=== PATIENT | female | born 1950 | race Caucasian/White ===

== ENCOUNTER 2017-02-27 03:25 | Emergency (ER) | payer MEDICARE ==
[~2017-02-27] VITALS: Ht 152.4 cm; Wt 105.2 kg
[~2017-02-27 03:25] MED LIST: ALBU-136 IH; ALEN70TA PO; CALCIUM PO; FURO20TA8 PO; Gabapentin PO; LACT10SO1 PO; LEVO750T51 PO; MIRT15TA4 PO; SACC250C1 PO; SPIR50TA2 PO; WARF4TAB PO
[2017-02-27 03:29] VITALS: BP 153/93
--- NOTE | 2017-02-27 03:31 | NUR ---
66Y [place] [facility] C/O BILATY LEG PAIN X 2 WEEKS 05/29. PT STATES BILAT LEGS HAS BEEN SWOLLEN FOR YEARS BUT THE PAIN HAS GOTTEN WORSE. PT DENIES ANY N/V/D, SOB,CP AT THE MOMENT. PT AMBULATES WITH CANE AT HOME. PT AAOX4. WITH OPEN SORE RIGHT ADHIKARI Addendum: 02/27/17 at 0421 by CLAIR 66Y F [facility] FAMILY C/O BILATY LEG PAIN X 2 WEEKS 05/29. PT STATES BILAT LEGS HAS BEEN SWOLLEN FOR 5 MONTHS EVER SINCE SHE STARTED SMOKING. PT DENIES ANY CARDIAC OR PULMONARY DX. PT STATES THE PAIN HAS GOTTEN WORSE. PT DENIES ANY N/V/D, SOB,CP AT THE MOMENT. PT AMBULATES WITH CANE AT HOME. PT AAOX4. WITH OPEN SORE RIGHT ADHIKARI
--- NOTE | 2017-02-27 03:31 | NUR ---
PT TAKEN TO BED 3
--- NOTE | 2017-02-27 04:27 | NUR ---
Dr. Brown evaluating patient at bedside.
[2017-02-27] MEDS ORDERED: KETOROLAC 30 MG/ML VIAL IM ONE (04:30)
[2017-02-27] MEDS ORDERED: HYDROcodone/APAP 5/325 MG 1 TAB TAB PO ONE (04:30)
--- NOTE | 2017-02-27 05:00 | NUR ---
Patient discharged with v/s stable. Written and verbal after care instructions given and explained. Patient alert, oriented and verbalized understanding of instructions. Ambulatory with steady gait. All questions addressed prior to discharge. ID band removed. Patient advised to follow up with PMD. Rx of NAPROSYN 500MG, TYLENOL #3 TAB,KEFLEX 500MG given. Patient educated on indication of medication including possible reaction and side effects. Opportunity to ask questions provided and answered.
[2017-02-27 05:01] VITALS: BP 138/87
== END 2017-02-27 05:00 | disposition home or self-care (01) ==
LOC: MED 03:25
DX: L03.115 Cellulitis of right lower limb (principal); I87.2 Venous insufficiency (chronic) (peripheral); L97.819 Non-pressure chronic ulcer of other part of right lower leg with unspecified severity; J45.909 Unspecified asthma, uncomplicated; I50.9 Heart failure, unspecified; E11.9 Type 2 diabetes mellitus without complications; I10 Essential (primary) hypertension; F17.210 Nicotine dependence, cigarettes, uncomplicated
CPT/HCPCS: 96372; 99283; J1885

== ENCOUNTER 2017-10-26 22:31 | Emergency (ER) | payer MEDICARE ==
[~2017-10-26] VITALS: Ht 157.5 cm; Wt 108.9 kg
[~2017-10-26 22:31] MED LIST changes: -ALBU-136 IH; -ALEN70TA PO; +IBUP-2218 PO; -LEVO750T51 PO; +LISI10TA11 PO; +METF500T4 PO; +METH10TA1 PO; +NAPR500E1 PO; +OMEP20TC12 PO
[2017-10-26 22:40] VITALS: BP 151/102
--- NOTE | 2017-10-27 02:20 | NUR ---
PT TAKEN TO BED 10 VIA WHEELCHAIR
--- NOTE | 2017-10-27 02:25 | NUR ---
67/F CAME IN W C/O OPEN WOUND TO RT GROIN, PT REPORTS SHE NOTICED WOUND X 4 DAYS AGO, UNKNOWN CAUSE. YELLOW WOUND BED NOTED WITHOUT ANY DISCHARGE. PMH: DM, HTN
[2017-10-27] MEDS ORDERED: KETOROLAC 60 MG/2 ML VIAL IM ONE (03:45)
[2017-10-27 04:30] VITALS: BP 132/75
--- NOTE | 2017-10-27 04:30 | NUR ---
Patient discharged with v/s stable. Written and verbal after care instructions given and explained. Patient alert, oriented and verbalized understanding of instructions. Ambulatory with steady gait. All questions addressed prior to discharge. ID band removed. Patient advised to follow up with PMD. Rx of BACTRIM DS, KEFLEX AND MOTRIN given. Patient educated on indication of medication including possible reaction and side effects. Opportunity to ask questions provided and answered.
== END 2017-10-27 04:30 | disposition home or self-care (01) ==
LOC: MED 22:31
DX: L03.115 Cellulitis of right lower limb (principal); J45.909 Unspecified asthma, uncomplicated; I11.0 Hypertensive heart disease with heart failure; I50.9 Heart failure, unspecified; E11.9 Type 2 diabetes mellitus without complications; F17.200 Nicotine dependence, unspecified, uncomplicated
CPT/HCPCS: 82948; 96372; 99283; J1885

== ENCOUNTER 2018-02-03 23:53 | Inpatient (IN) | payer MEDICARE, MEDICAID ==
[~2018-02-03] VITALS: Ht 165.1 cm; Wt 102.1 kg
[2018-02-04 00:03] VITALS: BP 157/66
--- NOTE | 2018-02-04 00:06 | NUR ---
TO BED # 10 VIA W/C, REPORT GIVEN TO AMANDA RUELAS.
--- NOTE | 2018-02-04 00:07 | NUR ---
67/F BIB FAMILY, C/O BODY ACHES, FEVER X3 DAYS. PT HAD A FALL 2 DAYS AGO, PT HIT LEFT SIDE OF FOREHEAD AND PERIORBITAL AREA. PT C/O 10/10 PAIN, NONRADIATING. PER FAMILY, HX CIRRHOSIS, DM, HTN, SUBSTANCE ABUSE (HEROIN) THAT PT QUIT. SKIN IS INTACT, PINK/WARM/DRY; AAOX3, PERRL, WITH EVEN AND STEADY GAIT; PT DROWSY BUT AROUSABLE, LUNGS CLEAR BL, BREATHING UNLABORED; HR EVEN AND REGULAR, BL PERIPHERAL PULSES PRESENT; BS ACTIVE X4, NO TENDERNESS TO PALPATION; PATIENT POSITIONED FOR COMFORT; HOB ELEVATED; BEDRAILS UP X2; BED DOWN.
--- NOTE | 2018-02-04 00:29 | NUR ---
Dr. Brown evaluating patient at bedside.
[2018-02-04] MEDS ORDERED: NACL 0.9% 1,000 ML IV ONE ×3 (00:34→02:10)
[2018-02-04 00:57] LABS: BASOPHILS # (AUTO) 0.1 K/uL (0.00-0.22); BASOPHILS % (AUTO) 0.7 % (0.0-2.0); EOSINOPHILS % (AUTO) 0.1 % (0.0-4.0); HEMATOCRIT 40.1 % (36-48); HEMOGLOBIN 13.5 g/dL (12.0-16.0); LYMPHOCYTES % (AUTO) 7.8 % (20.5-51.1); MEAN CORPUSCULAR HEMOGLOBIN 32 pg (27-31); MEAN CORPUSCULAR HGB CONC 34 g/dL (33-37); MONOCYTES # (AUTO) 1.1 K/uL (0.8-1.0); MONOCYTES % (AUTO) 8.7 % (1.7-9.3); NEUTROPHILS # (AUTO) 10.8 K/uL (1.8-7.7); NEUTROPHILS % (AUTO) 82.7 % (42.2-75.2); PLATELET COUNT (AUTO) 108 K/uL (140-450); RED BLOOD CELL COUNT(AUTO) 4.18 MIL/uL (4.20-5.40); RED CELL DISTRIBUTION WIDTH 14.7 % (11.6-13.7); WHITE BLOOD COUNT (AUTO) 13.1 K/uL (4.8-10.8)
[2018-02-04 01:10] LABS: ALBUMIN 2.7 g/dL (3.4-5.0); CARBON DIOXIDE 33.4 mmol/L (21-32)
[2018-02-04 01:13] LABS: APPEARANCE,URINE CLOUDY (CLEAR); BILIRUBIN,URINE NEGATIVE (NEGATIVE); BLOOD, URINE 1+ (NEGATIVE); COLOR,URINE YELLOW (YELLOW); LEUKOCYTE ESTERASE ,URINE TRACE (NEGATIVE); NITRITE, URINE POSITIVE (NEGATIVE); PH,URINE 6.5 (5.0-9.0); UGLUCOSE NEGATIVE (NEGATIVE)
[2018-02-04 01:14] LABS: PROTHROMBIN TIME 13.9 secs (10.8-13.4)
[2018-02-04 01:15] LABS: POTASSIUM 2.4 mmol/L (3.5-5.1)
[2018-02-04] MEDS ORDERED: ACETAMINOPHEN 650 MG SUPP RC ONE (01:15)
[2018-02-04] MEDS ORDERED: PIPERACILLIN/TAZOBACTAM 3.375 GM in DEXTROSE 5% 50 ML IV ONE (01:15)
[2018-02-04] MEDS ORDERED: KCL 20 MEQ/WATER INJ PREMIX 100 ML IV ONE (01:20)
[2018-02-04 01:21] LABS: RBC,URINE 0-5 (RARE) /HPF (0-5)
[2018-02-04] MEDS ORDERED: PIPERACILLIN/TAZOBACTAM 3.375 GM VIAL IV ONE (01:22)
--- NOTE | 2018-02-04 01:33 | NUR ---
Patient taken to CT scan via gurney by teressa, accompanied by RN.
--- NOTE | 2018-02-04 02:31 | NUR ---
PT SLEEPING COMFORTABLY IN BED, RR EVEN AND UNLABORED, SPO2 99% ON O2 2L, RR 12, TEMP 99.1. ALL NEEDS MET AT THIS TIME.
[2018-02-04] MEDS ORDERED: ACETAMINOPHEN 325 MG TAB PO PRN (03:20)
[2018-02-04] MEDS ORDERED: HYDROcodone/APAP 7.5/325 MG 1 TAB PO PRN (03:20)
[2018-02-04] MEDS ORDERED: ONDANSETRON 4 MG/2 ML VIAL IM/IVP PRN (03:20)
[2018-02-04] MEDS ORDERED: DOCUSATE SODIUM 100 MG GELCAP PO PRN (03:20)
[2018-02-04 03:56] LABS: BARBITURATE, URINE NEG. ng/ml (NEG <=200); BENZODIAZEPINE, URINE NEG. ng/mL (NEG <=200); CANNABINOID, URINE NEG. ng/mL (NEG <=50); COCAINE, URINE NEG. ng/mL (NEG <=300); OPIATE, URINE NEG. ng/mL (NEG <=2000); PHENCYCLIDINE SCREEN,URINE NEG. ng/mL (NEG <=25)
[2018-02-04 04:00] VITALS: BP 97/53
--- NOTE | 2018-02-04 04:00 | NUR ---
Patient will be admitted to care of DR LECHUGA. Admited to ICU. Will go to room2. Belongings list completed. Report to SHI RUELAS AT BEDSIDE.
--- NOTE | 2018-02-04 04:10 | NUR ---
RECEIVED PT IN THE UNIT AT 0357. PT TRANSPORTED VIA GURNEY. PT DROWSY. AWAKENS TO VOICE. AFEBRILE AT THIS TIME. ABLE TO MAKE SIMPLE NEEDS KNOWN. PERRL. LUNG SOUNDS CLEAR BILATERALLY. ON OXYGEN AT 2L/MIN VIA NC. NO SIGNS OF RESPIRATORY DISTRESS NOTED. S1+S2 HEARD. PULSES ARE PALPABLE IN ALL EXTREMITIES. SINUS RHYTHM ON MONITOR. BP LOW AT THIS TIME. MD AWARE. ABDOMEN ROUND, SOFT AND NONDISTENDED. BS ACTIVE IN ALL QUADRANTS. PT SKIN IS DRY AND FLAKY ON THE LOWER EXTREMITIES, BUT NO OPEN AREA. PT HAS ABD FOLD EXCORIATION WITH SOME OPEN AREA. EXCORIATION ALSO PRESENT ON BILATERAL GROIN AND FOUL SMELL NOTED. MD MADE AWARE. PT HAS LET FOREARM PERIPHERAL IV SITE 20G THAT IS PATENT, INTACT AND ASYMPTOMATIC. MRSA SWAB OF NARES COLLECTED. BED AT LOW POSSIBLE POSITION. ALL SAFETY PRECAUTIONS ARE IN PLACE. WILL CONTINUE TO MONITOR PT. Addendum: 02/04/18 at 0636 by Drew Pringle RN PT HAS 3 WHITE RINGS ON LEFT HAND AND ONE YELLOW RING WITH MULTIPLE CLEAR WHITE STONES. ON THE RIGHT HAND, THERE IS YELLOW RING WITH WHITE STONE AND YELLOW RING WITH MULTICOLORED STONE
[2018-02-04 04:15] LABS: CHOL/HDL RATIO 6.2 (1-4.5); FREE T4 (FREE THYROXINE) 1.59 ng/dL (0.76-1.46); MAGNESIUM 1.3 mg/dL (1.8-2.4); PHOSPHORUS 3.2 mg/dL (2.5-4.9); THYROID STIMULATING HORMONE 1.45 uIU/mL (0.34-3.74)
--- NOTE | 2018-02-04 04:20 | NUR ---
DR. MIRANDA AT BEDSIDE TO SEE PT. WILL FOLLOW-UP WITH ANY NEW ORDERS.
[2018-02-04] MEDS: NACL 0.9% 1,000 ML IV SCH (04:41)
[2018-02-04] MEDS ORDERED: MECLIZINE 25 MG TAB PO PRN (05:00)
[2018-02-04] MEDS ORDERED: POTASSIUM CHLORIDE 40 MEQ, LIDOCAINE 1% 25 MG in NACL 0.9% 250 ML IV SCH (05:30)
[2018-02-04] MEDS ORDERED: NACL 0.9% 500 ML IV ONE (05:30)
--- NOTE | 2018-02-04 05:42 | NUR ---
INFORMED DR. MIRANDA THAT ORDER OF POTASSIUM WITH LIDOCAINE CANNOT BE ADMINISTERED AT THIS TIME D/T PHARMACY HAS TO MIX THE MEDICATION. PER DR MIRANDA, OKAY TO GIVE THE MEDICATION WHEN IT BECOMES AVAILABLE FROM PHARMACY. WILL ENDORSE TO THE MORNING SHIFT.
[2018-02-04] MEDS ORDERED: MAG SULF 2000 MG/WATER PREMIX 50 ML IV SCH (06:30)
[2018-02-04] MEDS ORDERED: PIPER/TAZO 3.375GM/D5W PREMIX 50 ML IV SCH ×3 (07:00→13:00)
--- NOTE | 2018-02-04 07:11 | NUR ---
REPORT GIVEN TO MORNING RN FOR CONTINUITY OF CARE. ENDORSE THE POTASSIUM WITH LIDOCAINE ORDER. PT IN STABLE CONDITION AT THIS TIME.
--- NOTE | 2018-02-04 07:39 | NUR ---
RECEIVED REPORT FROM PREVIOUS SHIFT. PT RESTING QUIETLY. AFEBRILE. AAO X 3. RESPONDS TO VERBAL AND TACTILE STIMULI. ABLE TO VERBALIZE NEEDS. NO SIGNS OF ACUTE DISTRESS. ON 2LPM O2 VIA NC. S1 + S2 HEART SOUNDS PRESENT. BOWEL SOUNDS HYPOACTIVE X4 QUADRANTS. BUE/BLE PULSES PRESENT +2, SKIN TURGOR ELASTIC. REDNESS NOTED IN ABD. PT CLEAN AND DRY. BED IN LOWEST POSITION. SR UP X4. CALL LIGHT WITHIN REACH.
[2018-02-04 08:00] VITALS: BP 105/49
[2018-02-04] MEDS ORDERED: POTASSIUM CHLORIDE 40 MEQ, LIDOCAINE 2% 25 MG in NACL 0.9% 250 ML IV SCH (09:00)
--- NOTE | 2018-02-04 09:20 | NUR ---
PATIENT ARRIVED FROM ICU VIA BED/GURNEY. ABLE TO AMBULATE WITH ASSIST FROM ICU BED TO [facility] BED. PATIENT IN STABLE CONDITION. NO DISTRESS NOTED. RESPIRATIONS EVEN, UNLABORED, ON O2 3L/MIN VIA NC. AAOX3, CALM, COOPERATIVE, SKIN COLOR APPROPRIATE TO ETHNICITY, WARM TO TOUCH. HAS ABDOMINAL FOLDS AND GROIN FOLDS SKIN REDNESS NOTED. IV SITE INTACT, PATENT, AND INFUSING IVF PER MD ORDERS. ORIENTED PATIENT TO ROOM AND CALL LIGHT. REVIEWED PLAN OF CARE WITH PATIENT. PATIENT VERBALIZED UNDERSTANDING. SAFETY MEASURES IN PLACE, CALL LIGHT WITHIN REACH, FALL PREVENTIONS IN PLACE. WILL CONTINUE TO MONITOR.
[2018-02-04] MEDS: PIPER/TAZO 3.375GM/D5W PREMIX 50 ML IV SCH ×3 (10:01→20:06)
[2018-02-04] MEDS: LACTOBACILLUS RHAMNOSUS GG 1 EACH CAP PO SCH (10:02)
[2018-02-04] MEDS: ASCORBIC ACID 500 MG TAB PO SCH (10:02)
[2018-02-04] MEDS: NYSTATIN CRE 100 MU/GM 15 GM TUBE TP SCH ×2 (10:37→20:12)
[2018-02-04] MEDS: BLOOD GLUCOSE MONITORING 1 DEV DEV FS SCH ×3 (11:30→20:06)
[2018-02-04 12:00] VITALS: BP 115/60
--- NOTE | 2018-02-04 13:15 | NUR ---
WOUND CARE EVALUATION NOTE: REASON FRO EVALUATION: ABDOMINAL FOLDS INTERTRIGO COMPLETE SKIN ASSESSMENT DONE ON THIS 67Y/O FEMALE PATIENT ADMITTED TO [facility], WITH INITIAL DIAGNOSIS OF WORSEN ALOC X 3 DAYS. PAST MEDICAL HISTORY INCLUDE CHF, DM, HTN, AND LIVER CIRRHOSIS. ALL ABOVE INFORMATION WS OBTAINED FROM THE ADMISSION H&P AND PT S DAUGHTER WHO IS AAX4. LABS ARE WBC 13.1, H/H 13.5/40.1, GLUCOSE 117, ALBUMIN 2.7, PATIENT IS ALERT AND ORIENTED. ABLE TO FOLLOW SIMPLE DIRECTIONS. ON O2 WITH NC. URINE AND BOWEL CONTINENT, ABLE TO USE BEDSIDE COMMODE. ABLE TO MAKE NEEDS KNOWN. SKIN WARM TO TOUCH WNL, TOENAILS ARE THICKENED AND MILD FOUL ODER FROM INTERSPACES. POSSIBLE TINEA PEDIS. BILATERAL PEDAL PULSES PRESENT. ABLE TO TURN SELF WITHOUT ASSISTANCE. INITIAL PLAN OF CARE DISCUSSED WITH PRIMARY RN, PTS. DAUGHTER AND DR. THRASHER. ALL QUESTION ANSWERED. INTEGUMENTARY: -BLE XEROSIS WITH DARK PIGMENTATION -BILATERAL FEET / TOES WITH TINEA PEDIS -ABDOMINAL FOLDS INTERTRIGO RECOMMENDATIONS: -CLEANSE ABDOMINAL FOLD WITH MILD SOAP AND WATER, PAT DRY, APPLY NYSTATIN CREAM BIDWC AND LEAVE OPEN TO AIR -APPLY HYDRAGUARD TO BLE XEROSIS BIDWC AND LEAVE IT OPEN TO AIR -APPLY ANTIFUNGAL CREAM TO BILATERAL FEET, TOES BIDWC AND LEAVE IT OPEN TO AIR -TURN AND REPOSITION PATIENT Q2H -ASSESS AND MONITOR SKIN CONDITION DURING POSITION CHANGE -OFFLOAD BILATERAL HEELS BY PLACING PILLOWS UNDER CALVES AT ALL TIMES, UNLESS OTHERWISE CONTRAINDICATED -KEEP SKIN CLEAN AND DRY AT ALL TIMES. -PLEASE FOLLOW UP WITH OUT PATIENT PODIATRY SERVICE RECOMMENDATIONS DISCUSSED WITH PRIMARY RN NO FOLLOW UP NEEDED AT THIS TIME. PLEASE CONTACT WOUND CARE NURSE FOR ANY CONCERNS, QUESTIONS AND CHANGES IN SKIN CONDITION. Addendum: 02/04/18 at 1334 by Jhonatan Ortiz RN (Grace) ADD: R/L GROINS INTERTRIGO, PLEASE CLEANSE R/L GROINS WITH MILD SOAP AND WATER, PAT DRY, APPLY NYSTATIN CREAM BIDWC AND LEAVE OPEN TO AIR
[2018-02-04] MEDS: GABAPENTIN 100 MG CAP PO SCH ×2 (13:56→20:05)
--- NOTE | 2018-02-04 13:59 | NUR ---
PATIENT LYING IN BED SLEEPING, AROUSABLE BY VOICE. NO DISTRESS NOTED. DENIES ANY PAIN. SCHEDULED MEDICATION DUE GIVEN. ZOSYN NOT GIVEN AT THIS TIME DUE TO POTASSIUM VIA IV STILL INFUSING, WILL ADMINISTER ZOSYN WHEN POTASSIUM IS COMPLETED. SAFETY MEASURES IN PLACE, CALL LIGHT WITHIN REACH. WILL CONTINUE TO MONITOR.
--- NOTE | 2018-02-04 14:50 | NUR ---
PATIENT HAS BEEN SCREENED AND CATEGORIZED HIGH NUTRITION RISK. PATIENT WILL BE SEEN WITHIN 1-2 DAYS OF ADMISSION. 02/04/18 02/05/[address]
[2018-02-04 16:00] VITALS: BP 95/67
[2018-02-04 16:02] LABS: CARBON DIOXIDE 29.5 mmol/L (21-32); CREATININE 0.9 mg/dL (0.6-1.3)
[2018-02-04 16:05] LABS: ANION GAP 10.5 (8-16)
[2018-02-04] MEDS ORDERED: metFORMIN 500 MG TAB PO SCH (17:00)
--- NOTE | 2018-02-04 17:35 | NUR ---
PATIENT LYING DOWN IN BED SLEEPING, AROUSABLE BY VOICE. NO DISTRESS NOTED. DENIES ANY PAIN. SCHEDULED MEDICATIONS DUE GIVEN. WILL CONTINUE TO MONITOR.
--- NOTE | 2018-02-04 19:27 | NUR ---
GAVE REPORT TO NETWORK DEVELOPER NURSE FOR CONTINUITY OF CARE. PATIENT IN STABLE CONDITION.
--- NOTE | 2018-02-04 19:30 | NUR ---
RECEIVED REPORT FROM VANESA AT BEDSIDE FOR CONTINUITY OF CARE. PT SLEEPING NO SOB NO S/S OF DISTRESS. O2 2L NC. IV NOTED LFA 20/ML HR NS. NO BLOOD PRESSURE OR BLOOD ON RIGHT PT HAS DVT TO RIGHT HAND. PT BED LOWERED CALL LIGHT WITHIN REACH WILL CONTINUE TO MONITOR.
[2018-02-04 20:00] VITALS: BP 105/57
[2018-02-04] MEDS: MIRTAZAPINE 15 MG TAB PO SCH (20:05)
--- NOTE | 2018-02-04 20:20 | NUR ---
GAVE PT SCHEDULED MEDICATION. PT SWALLOWED FINE. PT DROWSY WILL CONTINUE TO MONITOR.
--- NOTE | 2018-02-04 21:00 | NUR ---
PT DAUGHTER ASKED TO SEE HOW HER MOTHER IS DOING. GAVE HER AN UPDATE AND LET HER KNOW WE WILL CONTINUE TO MONITOR.
[2018-02-05] VITALS: BP 96/51
--- NOTE | 2018-02-05 01:29 | NUR ---
PT SLEEPING. NO SOB. NO S/S OF DISTRESS. WILL CONTINUE TO MONITOR.
[2018-02-05 03:07] VITALS: BP 99/51
[2018-02-05] MEDS: NACL 0.9% 1,000 ML IV SCH (03:20)
[2018-02-05] MEDS: PIPER/TAZO 3.375GM/D5W PREMIX 50 ML IV SCH ×3 (04:03→22:02)
[2018-02-05] MEDS: GABAPENTIN 100 MG CAP PO SCH ×2 (04:04→13:10)
[2018-02-05] MEDS: BLOOD GLUCOSE MONITORING 1 DEV DEV FS SCH ×4 (05:20→20:24)
--- NOTE | 2018-02-05 05:30 | NUR ---
PT BLOOD GLUCOSE 64. GAVE OJ W/ SUGAR. WILL CONTINUE TO MONITOR.
[2018-02-05 06:15] LABS: T4 (THYROXINE) 9.6 ug/dL (4.5-12.0)
--- NOTE | 2018-02-05 07:21 | NUR ---
GAVE REPORT TO DAYSHIFT NURSE AT BEDSIDE FOR CONTINUITY OF CARE.
--- NOTE | 2018-02-05 07:25 | NUR ---
RECEIVED REPORT FROM ASSISTANT TRACK COACH RN. PATIENT IS AAOX3, SLEEPING BUT AROUSABLE BY VOICE. NO DISTRESS NOTED. DENIES PAIN AT THIS TIME. LUNGS CTA IN ALL POLANCO. HEART RHYTHM REGULAR, S1 AND S2 NOTED. ABDOMEN IS SOFT AND ON-DISTENDED. IV SITE ON LEFT FOREARM IS INFILTRATED, WILL REMOVE AND INSERT NEW IV. CLEAN AND DRY LACERATION NOTED ON ABDOMEN, WILL OBTAIN WOUND CULTURE. PATIENT USES A COMMODE AT BEDSIDE WITH ASSISTANCE. DISCUSSED PLAN OF CARE WITH PATIENT, PATIENT VERBALIZED UNDERSTANDING. ALL SAFETY MEASURES ARE IN PLACE, CALL LIGHT WITHIN REACH. WILL CONTINUE TO MONITOR.
[2018-02-05 07:44] LABS: BASOPHILS # (AUTO) 0.1 K/uL (0.00-0.22); EOSINOPHILS # (AUTO) 0.1 K/uL (0-0.4); EOSINOPHILS % (AUTO) 1.4 % (0.0-4.0); HEMATOCRIT 34.8 % (36-48); HEMOGLOBIN 11.7 g/dL (12.0-16.0); LYMPHOCYTES # (AUTO) 1.6 K/uL (2.5-16.5); LYMPHOCYTES % (AUTO) 20.2 % (20.5-51.1); MEAN CORPUSCULAR HEMOGLOBIN 33 pg (27-31); MEAN CORPUSCULAR HGB CONC 34 g/dL (33-37); MEAN CORPUSCULAR VOLUME 97.5 fL (80-94); MONOCYTES # (AUTO) 0.9 K/uL (0.8-1.0); MONOCYTES % (AUTO) 10.7 % (1.7-9.3); NEUTROPHILS # (AUTO) 5.4 K/uL (1.8-7.7); NEUTROPHILS % (AUTO) 66.7 % (42.2-75.2); PLATELET COUNT (AUTO) 104 K/uL (140-450); RED BLOOD CELL COUNT(AUTO) 3.57 MIL/uL (4.20-5.40); RED CELL DISTRIBUTION WIDTH 14.7 % (11.6-13.7)
[2018-02-05] MEDS: ASCORBIC ACID 500 MG TAB PO SCH (08:42)
[2018-02-05] MEDS: LACTOBACILLUS RHAMNOSUS GG 1 EACH CAP PO SCH (08:42)
[2018-02-05] MEDS: NYSTATIN CRE 100 MU/GM 15 GM TUBE TP SCH ×2 (08:58→21:00)
[2018-02-05] MEDS ORDERED: LISINOPRIL 10 MG TAB PO SCH (09:00)
[2018-02-05] MEDS ORDERED: SPIRONOLACTONE 25 MG TAB PO SCH (09:00)
--- NOTE | 2018-02-05 09:15 | NUR ---
PATIENT LYING IN BED, DROWSY, AROUSABLY BY VOICE. NO DISTRESS NOTED. DENIES ANY PAIN. SCHEDULED MEDICATIONS DUE GIVEN. SAFETY MEASURES IN PLACE, CALL LIGHT WITHIN REACH. WILL CONTINUE TO MONITOR.
[2018-02-05 10:19] LABS: ANION GAP 13.1 (8-16); CARBON DIOXIDE 31.5 mmol/L (21-32); CREATININE 0.9 mg/dL (0.6-1.3)
[2018-02-05 10:29] LABS: POTASSIUM 2.6 mmol/L (3.5-5.1)
--- NOTE | 2018-02-05 11:40 | NUR ---
PATIENT SITTING IN BED TALKING WITH SON AT BEDSIDE. BLOOD SUGAR CHECKED AT 62, ORANGE JUICE GIVEN AND WILL RECHECK AGAIN BECAUSE SON REPORTS BLOOD GLUCOSE IS USUALLY HIGH. WILL CONTINUE TO MONITOR.
[2018-02-05 11:52] VITALS: BP 101/59
[2018-02-05] MEDS ORDERED: MAG SULF 2000 MG/WATER PREMIX 50 ML IV SCH (12:30)
--- NOTE | 2018-02-05 12:30 | NUR ---
PATIENT'S BLOOD GLUCOSE RECHECKED AT 92 MG/DL WITH ORANGE JUICE GIVEN EARLIER. PATIENT AWAITING FOR CT ABDOMINAL/PELVIS WITH CONTRAST DONE. RADIOLOGIST SAID THEY WILL COME SOON. SAFETY MEASURES IN PLACE, CALL LIGHT WITHIN REACH. WILL CONTINUE TO MONITOR.
[2018-02-05] MEDS ORDERED: RIFAXIMIN 550 MG TAB PO SCH (13:00)
[2018-02-05] MEDS ORDERED: POTASSIUM CHLORIDE 10 MEQ TABER PO SCH ×2 (13:00→21:00)
[2018-02-05] MEDS ORDERED: METHADONE 10 MG TAB PO SCH ×2 (13:00→21:00)
[2018-02-05] MEDS ORDERED: MUPIROCIN 2% OINT 22 GM TUBE TP SCH (14:20)
--- NOTE | 2018-02-05 14:30 | NUR ---
RADIOLOGIST AT BEDSIDE TO TAKE PATIENT FOR CT SCAN OF ABD/PELVIS WITH CONTRAST. WILL CONTINUE TO MONITOR WHEN PATIENT RETURNS.
--- NOTE | 2018-02-05 14:53 | NUR ---
PATIENT BACK FROM RADIOLOGY. IVF RECONNECTED. LUNCH TRAY GIVEN TO PATIENT. NO DISTRESS NOTED. DENIES ANY PAIN. SAFETY MEASURES IN PLACE, CALL LIGHT WITHIN REACH, WILL CONTINUE TO MONITOR.
--- NOTE | 2018-02-05 14:54 | NUR ---
02/05/18 RD INITIAL ASSESSMENT COMPLETED PLEASE REFER TO NUTRITION ASSESSMENT UNDER CARE ACTIVITY FOR ESTIMATED NUTRITIONAL NEEDS. 1. CONTINUE CCHO 60 DIET TOLERATED 2. RECOMMEND NA 2GM DIET WELL 3. PROVIDE DIABETES AND CHF NUTRITION EDUCATION ON F/U VISIT 4. RD TO FOLLOW-UP 3-5 DAYS, MODERATE RISK CHRISTIAN WEB[address] RD
--- NOTE | 2018-02-05 15:30 | NUR ---
PATIENT LYING DOWN IN BED SLEEPING, AROUSABLE BY VOICE, DROWSY. NO DISTRESS NOTED. DENIES ANY PAIN. SAFETY MEASURES IN PLACE, CALL LIGHT WITHIN REACH. WILL CONTINUE TO MONITOR.
--- NOTE | 2018-02-05 15:47 | NUR ---
Clinical review faxed to [facility] at [phone] and faxed to [facility] at [phone]
[2018-02-05 16:00] VITALS: BP 95/58
[2018-02-05] MEDS ORDERED: KCL 20 MEQ/WATER INJ PREMIX 200 ML IV SCH (16:00)
[2018-02-05] MEDS: ANTIFUNGAL CLEAR OINTMENT TP SCH ×2 (16:26→21:00)
[2018-02-05] MEDS: CHLORHEXADINE GLUC 2% CLOTH TP SCH (16:27)
[2018-02-05] MEDS: HYDRAGUARD CREAM TP SCH ×2 (16:28→21:00)
[2018-02-05] MEDS: MUPIROCIN CA NASAL 2% 1GM TUBE NS SCH (16:29)
[2018-02-05] MEDS ORDERED: POTASSIUM CHLORIDE 40 MEQ, LIDOCAINE 1% 25 MG in NACL 0.9% 250 ML IV SCH (16:45)
[2018-02-05] MEDS: DEXTROSE 50% 50 ML SYR IVP PRN (17:40)
--- NOTE | 2018-02-05 17:43 | NUR ---
PATIENT BLOOD GLUCOSE AT 62, DEXTROSE 50% GIVEN PER MD ORDERS. WILL CHECK BS AGAIN IN 15 MINUTES AFTER ADMINISTRATION. WILL CONTINUE TO MONITOR.
--- NOTE | 2018-02-05 19:09 | NUR ---
ENDORSED PLAN OF CARE TO HOSE OPERATOR RN. PATIENT IS IN STABLE CONDITION. DENIES PAIN. NO DISTRESS NOTED.
[2018-02-05 20:00] VITALS: BP 101/58
--- NOTE | 2018-02-05 20:00 | NUR ---
PATIENT REPORT RECEIVED FROM SURAJ KNAPP AT BEDSIDE. PATIENT IS ASLEEP BUT EASY TO AROUSE. NO SIGNS AND SYMPTOMS OF DISTRESS NOTED. BREATHING EVEN AND UNLABORED. BED IN LOWEST POSITION, SIDE RAILS UP AND CALL LIGHT WITHIN REACH. WILL CONTINUE TO MONITOR
[2018-02-05] MEDS ORDERED: LACTULOSE 20 GM/30 ML UDC PO PRN (20:10)
[2018-02-05] MEDS ORDERED: METHADONE 10 MG TAB PO ONE (20:15)
[2018-02-05] MEDS: MIRTAZAPINE 15 MG TAB PO SCH (20:30)
[2018-02-05] MEDS: RIFAXIMIN 550 MG TAB PO SCH (20:30)
--- NOTE | 2018-02-05 21:00 | NUR ---
MEDICATION EDUCATION GIVEN ORDERED. PATIENT VERBALIZED UNDERSTANDING. MEDICATION ADMINISTERED ORDERED
[2018-02-05] MEDS ORDERED: INSULIN LISPRO SLIDING SCALE 100 UNITS/ML VIAL SUBQ PRN (21:45)
--- NOTE | 2018-02-05 22:08 | NUR ---
METHADONE HELD DUE TO PATIENT'S DECREASED BP AND LETHARGY
--- NOTE | 2018-02-05 22:30 | NUR ---
PATIENT REPORT GIVEN TO SURAJ ACUNA AT BEDSIDE FOR CONTINUITY OF CARE. PATIENT IS IN STABLE CONDITION
--- NOTE | 2018-02-05 22:31 | NUR ---
PATIENT REPORT RECEIVED FROM SURAJ SANON AT BEDSIDE. PATIENT IS ASLEEP BUT EASY TO AROUSE. NO SIGNS AND SYMPTOMS OF DISTRESS NOTED. BREATHING EVEN AND UNLABORED. BED IN LOWEST POSITION, SIDE RAILS UP AND CALL LIGHT WITHIN REACH. WILL CONTINUE TO MONITOR
[2018-02-06] VITALS: BP 103/61
--- NOTE | 2018-02-06 | NUR ---
VITAL SIGNS TAKEN AND TOLERATED WELL. NO S/S OF RESPIRATORY DISTRESS OR DISCOMFORT NOTED AT THIS TIME. WILL CONTINUE TO MONITOR.
--- NOTE | 2018-02-06 02:00 | NUR ---
ASSISTED PT TO USE BED SIDE COMMODE. PT UNSTABLE AND NEEDS HELP GETTING UP OUT OF BED TO USE THE BEDSIDE COMMODE. STRICT I&O. PT VOIDED AND HAD BOWEL MOVEMENT. ASSISTED PT BACK INTO BED. PT REQUESTED WARM BLANKET. PROVIDED FOR PT COMFORT. NO S/S OF RESPIRATORY DISTRESS OR DISCOMFORT. WILL CONTINUE TO MONITOR.
[2018-02-06] MEDS: NACL 0.9% 1,000 ML IV SCH ×2 (03:20→23:20)
[2018-02-06 04:00] VITALS: BP 105/54
[2018-02-06] MEDS: PIPER/TAZO 3.375GM/D5W PREMIX 50 ML IV SCH ×3 (04:40→20:55)
--- NOTE | 2018-02-06 04:40 | NUR ---
SCHEDULED MEDICATION GIVEN. BLOOD GLUCOSE 65. WILL ADMINISTER D50% ABBOJECT 50ML/SYRINGE.
[2018-02-06] MEDS: BLOOD GLUCOSE MONITORING 1 DEV DEV FS SCH ×4 (04:56→20:41)
[2018-02-06] MEDS: DEXTROSE 50% 50 ML SYR IVP PRN (04:58)
--- NOTE | 2018-02-06 05:00 | NUR ---
DEXTROSE 50% ABBOJECT GIVEN. WILL RE-CHECK BLOOD GLUCOSE WITHIN 30 MINUTES. WILL CONTINUE TO MONITOR.
--- NOTE | 2018-02-06 05:35 | NUR ---
BLOOD GLUCOSE 153. PT CONTINUES TO REST IN BED. NO S/S OF RESPIRATORY DISTRESS OR DISCOMFORT. WILL CONTINUE TO MONITOR.
--- NOTE | 2018-02-06 06:00 | NUR ---
PT CONTINUES TO SLEEP. NO S/S OF RESPIRATORY DISTRESS OR DISCOMFORT NOTED. WILL CONTINUE TO MONITOR.
[2018-02-06 06:33] LABS: BASOPHILS % (AUTO) 0.5 % (0.0-2.0); EOSINOPHILS # (AUTO) 0.2 K/uL (0-0.4); EOSINOPHILS % (AUTO) 3.5 % (0.0-4.0); HEMATOCRIT 34.4 % (36-48); HEMOGLOBIN 11.6 g/dL (12.0-16.0); LYMPHOCYTES # (AUTO) 1.4 K/uL (2.5-16.5); LYMPHOCYTES % (AUTO) 28.4 % (20.5-51.1); MEAN CORPUSCULAR HEMOGLOBIN 33 pg (27-31); MEAN CORPUSCULAR HGB CONC 34 g/dL (33-37); MEAN CORPUSCULAR VOLUME 97.5 fL (80-94); MONOCYTES # (AUTO) 0.5 K/uL (0.8-1.0); MONOCYTES % (AUTO) 10.2 % (1.7-9.3); NEUTROPHILS # (AUTO) 2.7 K/uL (1.8-7.7); NEUTROPHILS % (AUTO) 57.4 % (42.2-75.2); PLATELET COUNT (AUTO) 101 K/uL (140-450); RED BLOOD CELL COUNT(AUTO) 3.52 MIL/uL (4.20-5.40); RED CELL DISTRIBUTION WIDTH 14.4 % (11.6-13.7); WHITE BLOOD COUNT (AUTO) 4.8 K/uL (4.8-10.8)
[2018-02-06 06:40] LABS: CARBON DIOXIDE 30.2 mmol/L (21-32); CREATININE 0.8 mg/dL (0.6-1.3); POTASSIUM 3.2 mmol/L (3.5-5.1)
--- NOTE | 2018-02-06 07:19 | NUR ---
ENDORSED PT CARE TO DAY SHIFT NURSE RODRIGUE-SURAJ FOR CONTINUITY OF CARE.
--- NOTE | 2018-02-06 07:20 | NUR ---
RECEIVED REPORT FROM REAL ESTATE TRANSACTION MANAGER RN AT BEDSIDE, PT IS AAOX2, DROWSY NOTED, ABLE TO FOLLOW COMMANDS AND MAKE NEEDS KNOWN, VSS, C/O PAIN TO BLE, 3/10 TOLERABLE, NO S/S OF DISTRESS, CLEAR LUNG SOUNDS LUCIA. DENIES CHEST PAIN, SR ON TELE MONITOR, LARGE SOFT ABDOMEN WITH ACTIVE BOWEL SOUNDS, CONTINENT WITH B&B'S, USING BSC, GENERALIZED WEAKNESS TO ALL EXTREMITIES, REQUIRES ASSIST WITH ADL'S. SKIN IS WARM AND DRY TO TOUCH, OPEN WOUND TO ABDOMEN FOLD AND GROIN AREA, +1 PITTING EDEMA TO BLE NOTED, IV SITE TO LEFT FOREARM 20GA, PATENT AND SL. ON CONTACT ISOLATION, PLACED PT TO COMFORT POSITION, SAFETY MEASURES IN PLACE, HOB ELEVATED, CALL LIGHT WITHIN REACH, WILL CONTINUE TO MONITOR.
[2018-02-06 07:23] LABS: MAGNESIUM 1.7 mg/dL (1.8-2.4); PHOSPHORUS 2.4 mg/dL (2.5-4.9)
[2018-02-06 08:00] VITALS: BP 105/66
[2018-02-06] MEDS ORDERED: MAG SULF 2000 MG/WATER PREMIX 50 ML IV SCH (08:28)
[2018-02-06] MEDS ORDERED: METHADONE 10 MG TAB PO SCH ×3 (09:00→21:00)
--- NOTE | 2018-02-06 09:00 | NUR ---
SCHEDULED MEDICATION GIVEN, PT IS ABLE TO SWALLOW PILLS WHOLE, TOLERATED WELL ALL THE MEDICATIONS.
[2018-02-06] MEDS: HYDRAGUARD CREAM TP SCH ×2 (09:13→21:19)
[2018-02-06] MEDS: LACTULOSE 20 GM/30 ML UDC PO SCH ×2 (09:13→21:03)
[2018-02-06] MEDS: NYSTATIN CRE 100 MU/GM 15 GM TUBE TP SCH ×2 (09:14→21:19)
[2018-02-06] MEDS: RIFAXIMIN 550 MG TAB PO SCH ×2 (09:14→20:56)
[2018-02-06] MEDS: LACTOBACILLUS RHAMNOSUS GG 1 EACH CAP PO SCH (09:15)
[2018-02-06] MEDS: SODIUM PHOS / POTASSIUM PHOS 1 PKT PDR PO SCH ×3 (09:15→21:04)
[2018-02-06] MEDS: ASCORBIC ACID 500 MG TAB PO SCH (09:15)
[2018-02-06] MEDS: SPIRONOLACTONE 25 MG TAB PO SCH (09:15)
[2018-02-06] MEDS: ANTIFUNGAL CLEAR OINTMENT TP SCH ×2 (09:22→21:19)
[2018-02-06] MEDS: KCL 20 MEQ/WATER INJ PREMIX 200 ML IV SCH ×2 (09:31→11:00)
--- NOTE | 2018-02-06 10:48 | NUR ---
Sheriff Note: I called and spoke with patient's son Arnold Zhang regarding MD's recommendation for short term snf placement. Per Arnold, he is in agreement with short term snf placement. I explained to him I was going to contact snfs that are contracted with patient's health insurance and inquire regarding bed availability. I informed him I was going to contact him once I was able to find a snf able to accept patient. He verbalized understanding.
[2018-02-06 12:00] VITALS: BP 105/66
--- NOTE | 2018-02-06 12:00 | NUR ---
NO S/S OF DISTRESS, VSS, DENIES PAIN, ASSISTED PT USING BSC, WILL CONTINUE TO MONITOR.
--- NOTE | 2018-02-06 14:14 | NUR ---
Charge Attendant Note: Snf placement follow up: Per Eladio from [facility] , unable to accept patient due Methadone. Roselia from [facility] left me a message stating they can't accept patient. Per Alfredo from [facility] , they do not have a contract with [facility], despite [facility] being on snf list [facility] faxed us.
--- NOTE | 2018-02-06 14:43 | NUR ---
1034 CALL PLACED TO [facility] [phone] SPOKE WITH TRAY AND INQUIRED CM ASSIGNED TO PT. PER TRAY TRACKING #[id number]*IH AND CM IS [place] AT [phone]. SPOKE WITH DIAZ AND INFORMED HER THAT PT HAS ORDER TO TRANSFER TO SNF FOR CONTINUED IV ABX AND PT. PER DIAZ SHE WILL FAX OVER SNF LIST. CLINICAL REVIEW TO BE FAXED TO [phone] Addendum: 02/06/18 at 1513 by Pam Lucio CM CORRECT PHONE NUMBER FOR [facility] [phone] AND FAX [phone]
--- NOTE | 2018-02-06 15:18 | NUR ---
Hydrological Technical Officer Note: Snf placement follow up: I faxed inquiries to the following snfs and contacted them as well: I left a message for Lissette at [facility] . Per Roxy from [facility] , she will ask her clerical administrator if they can accommodate patient with Methadone. Per Janine from [facility] [phone], she will ask her clerical administrator if they can accommodate patient with Methadone. Addendum: 02/06/18 at 1732 by Lainey GENAO Per Janine from [facility] [phone], they can't accept patient on Methadone. Per Ishaan from [facility] , they can't accept patient on Methadone.
[2018-02-06] MEDS: MUPIROCIN CA NASAL 2% 1GM TUBE NS SCH (15:20)
[2018-02-06] MEDS: CHLORHEXADINE GLUC 2% CLOTH TP SCH (15:20)
[2018-02-06 16:00] VITALS: BP 102/65
--- NOTE | 2018-02-06 16:00 | NUR ---
IV SITE TO LEFT FOREARM ACCIDENTALLY PULLED OUT BY PT, SMALL AMOUNT OF BLEEDING NOTED, REINSERTED IV LINE TO RIGHT FOREARM WITH GOOD BLOOD RETURN.
--- NOTE | 2018-02-06 17:27 | NUR ---
Convention Manager Note: Per Roxy from [facility] , they can accommodate patient with Methadone, however, they need authorization from [facility], I provided her with nurse case management Juan's from [facility] phone number [phone]. Both Roxy and I have left messages for nurse case management Juan from [facility]. I called and spoke with another nurse case management from [facility] [phone], her name is Carmen. Per Carmen, she will try to contact nurse case management Juan and relay information regarding [facility] able to accept patient and need for snf authorization. Addendum: 02/06/18 at 1735 by Lainey GENAO Flako Ramsey from [facility] if they obtain authorization for snf placement from [facility], they will contact nursing staff and provide them with room number and accepting physician.
--- NOTE | 2018-02-06 19:18 | NUR ---
REPORT GIVEN TO GREEN FEED ATTENDANT RN AT BEDSIDE FOR CONTINUE OF CARE, PT IS IN STABLE CONDITION AT THIS TIME.
--- NOTE | 2018-02-06 19:19 | NUR ---
REPORT RECEIVED FROM AM NURSE. PT IN STABLE CONDITION. AAOX2. INTRODUCED SELF AND BOARD UPDATED. HEART SOUNDS NORMAL. LUNG SOUNDS SLIGHTLY DIMINISHED. BOWEL SOUNDS PRESENT X4 QUADRANTS. IV SITE INTACT AND PATENT. SKIN WARM, DRY, AND NOT INTACT. EXCORIATION OF THE ABDOMINAL FOLDS. PT IS A FALL RISK WITH HX OF FALLS. SAFETY MEASURES IN PLACE. BED LOCKED IN LOW POSITION. CALL ROSARIO WITHIN REACH. WILL CONTINUE TO MONITOR.
[2018-02-06 20:00] VITALS: BP 103/65
[2018-02-06] MEDS: MIRTAZAPINE 15 MG TAB PO SCH (20:55)
--- NOTE | 2018-02-06 20:55 | NUR ---
PM MEDS GIVEN. PT TOLERATED WELL.
--- NOTE | 2018-02-06 23:10 | NUR ---
PT ASLEEP IN BED. NOT IN ACUTE DISTRESS. WILL CONTINUE TO MONITOR.
[2018-02-07] VITALS: BP 103/65
--- NOTE | 2018-02-07 01:45 | NUR ---
PT ASLEEP LAYING SUPINE. PT NOT IN ANY ACUTE DISTRESS. WILL CONTINUE TO MONITOR.
[2018-02-07 04:00] VITALS: BP 103/65
--- NOTE | 2018-02-07 04:15 | NUR ---
LEAD OFF FOR PT. PT AWAKENED TO FIND LEAD THAT WAS OFF. PT AROUSABLE BUT DROWSY. PT NOT IN ANY ACUTE DISTRESS.
[2018-02-07] MEDS: PIPER/TAZO 3.375GM/D5W PREMIX 50 ML IV SCH ×2 (04:43→13:32)
[2018-02-07] MEDS: BLOOD GLUCOSE MONITORING 1 DEV DEV FS SCH ×3 (05:13→16:56)
--- NOTE | 2018-02-07 05:15 | NUR ---
PT AWAKENED FOR BLOOD DRAW. AWAKE BUT DROWSY. PT TOLERATED WELL.
[2018-02-07 06:15] LABS: BASOPHILS % (AUTO) 0.2 % (0.0-2.0); EOSINOPHILS # (AUTO) 0.2 K/uL (0-0.4); EOSINOPHILS % (AUTO) 4.4 % (0.0-4.0); HEMATOCRIT 34.9 % (36-48); HEMOGLOBIN 11.9 g/dL (12.0-16.0); LYMPHOCYTES # (AUTO) 1.8 K/uL (2.5-16.5); LYMPHOCYTES % (AUTO) 35.9 % (20.5-51.1); MEAN CORPUSCULAR HEMOGLOBIN 33 pg (27-31); MEAN CORPUSCULAR HGB CONC 34 g/dL (33-37); MEAN CORPUSCULAR VOLUME 97.4 fL (80-94); MONOCYTES # (AUTO) 0.4 K/uL (0.8-1.0); MONOCYTES % (AUTO) 8.4 % (1.7-9.3); NEUTROPHILS # (AUTO) 2.6 K/uL (1.8-7.7); NEUTROPHILS % (AUTO) 51.1 % (42.2-75.2); PLATELET COUNT (AUTO) 111 K/uL (140-450); RED BLOOD CELL COUNT(AUTO) 3.59 MIL/uL (4.20-5.40); RED CELL DISTRIBUTION WIDTH 14.5 % (11.6-13.7); WHITE BLOOD COUNT (AUTO) 5.1 K/uL (4.8-10.8)
[2018-02-07 06:36] LABS: ANION GAP 16.8 (8-16); CARBON DIOXIDE 26.6 mmol/L (21-32); CREATININE 0.7 mg/dL (0.6-1.3); POTASSIUM 3.4 mmol/L (3.5-5.1)
[2018-02-07 06:41] LABS: MAGNESIUM 1.7 mg/dL (1.8-2.4); PHOSPHORUS 3.4 mg/dL (2.5-4.9)
--- NOTE | 2018-02-07 07:08 | NUR ---
REPORT GIVEN TO AM NURSE. PT IN STABLE CONDITION.
--- NOTE | 2018-02-07 07:09 | NUR ---
RECEIVED REPORT FROM FITTING ROOM SUPERVISOR RN. PATIENT IS AAOX2, SLEEPING BUT AROUSABLE TO NAME. HAS NO SIGNS AND SYMPTOMS OF ACUTE DISTRESS NOTED AT THIS TIME. HAS RIGHT FA 20G INFUSING NS AT 50 ML/HR. SITE IS CLEAN, DRY, PATENT AND INTACT. BEDSIDE COMMODE NEXT TO BED DUE TO GENERALIZED WEAKNESS. PATIENTS SKIN IS NOT INTACT, HAS EXCORIATION TO THE ABDOMINAL FOLDS. BED IN LOWEST POSITION, SIDE RIALS UP X2, CALL LIGHT PLACED WITHIN REACH. WILL CONTINUE TO MONITOR.
[2018-02-07] MEDS ORDERED: NACL 0.45% 1,000 ML IV SCH (07:30)
[2018-02-07 08:00] VITALS: BP 93/49
[2018-02-07] MEDS: HYDRAGUARD CREAM TP SCH (09:00)
[2018-02-07] MEDS: SPIRONOLACTONE 25 MG TAB PO SCH (09:00)
[2018-02-07] MEDS: ANTIFUNGAL CLEAR OINTMENT TP SCH (09:00)
[2018-02-07] MEDS: NYSTATIN CRE 100 MU/GM 15 GM TUBE TP SCH (09:00)
--- NOTE | 2018-02-07 10:21 | NUR ---
SPOKE WITH DIAZ FROM [facility] AND INFORMED HER THAT [facility] HAS ACCEPTED THE PATIENT. DIAZ SAID THE AUTH FOR THE SNF IS [id number]. THE AUTH FOR TRANSPORT, [facility] OR [facility] IS [id number]*PTR.
[2018-02-07] MEDS: ASCORBIC ACID 500 MG TAB PO SCH (10:26)
[2018-02-07] MEDS: LACTOBACILLUS RHAMNOSUS GG 1 EACH CAP PO SCH (10:26)
[2018-02-07] MEDS: LACTULOSE 20 GM/30 ML UDC PO SCH (10:27)
[2018-02-07] MEDS: RIFAXIMIN 550 MG TAB PO SCH (10:27)
--- NOTE | 2018-02-07 10:45 | NUR ---
CALLED [facility] AND SPOKE WITH NARENDRA. SET UP [facility] TRANSPORT FOR 5 P.M. JEWEL RUELAS AWARE. MO FROM, [facility] AWARE PATIENT BEING DISCHARGE TODAY. Addendum: 02/07/18 at 1052 by Karen Wilcox JEWEL RUELAS INFORMED THAT PATIENT WILL GO TO ROOM 10B AT [facility], [phone]. AND GEAR TECHNICIAN TIME IS 5P.M.
--- NOTE | 2018-02-07 11:37 | NUR ---
Windlace Machine Operator Note: I spoke with Roxy from [facility] , and provided her [facility] [id number]*[facility]. Roxy stated patient may go to room 10B after 4pm today, accepting physician is . I called and spoke with patient's son Arnold Zhang to inform him [facility] has accepted patient and will be transfer to that facility today. He verbalized understanding and is in agreement with transfer. He stated he was driving and requested I provide his cousin Johnathon with [facility]'s address and phone number, he handed phone to Johnathon. I provided Johnathon with address and phone number for [facility]. Addendum: 02/07/18 at 1200 by Lainey Fontenot SS Roxy from [facility] is aware Methadone is not administered for pain, and is also aware patient is a former heroin user.
[2018-02-07 12:00] VITALS: BP 113/59
[2018-02-07] MEDS ORDERED: VITC500 PO (12:52)
[2018-02-07] MEDS ORDERED: CHLO118S2 TP (12:52)
[2018-02-07] MEDS ORDERED: BACTNA NS (12:52)
[2018-02-07] MEDS ORDERED: MYCC TP (12:52)
[2018-02-07] MEDS ORDERED: Hydraguard TP (12:52)
[2018-02-07] MEDS ORDERED: LACT10SO11 PO (12:52)
[2018-02-07] MEDS ORDERED: DOL10 PO (12:52)
[2018-02-07] MEDS ORDERED: ZOS3.375PM IV (12:52)
[2018-02-07] MEDS ORDERED: DOCU-299 PO (12:52)
[2018-02-07] MEDS ORDERED: [UNRECOGNIZED DRUG - OTHER] TP (12:52)
[2018-02-07] MEDS ORDERED: METHADONE 10 MG TAB PO SCH (13:00)
[2018-02-07] MEDS: CHLORHEXADINE GLUC 2% CLOTH TP SCH (15:00)
[2018-02-07] MEDS: MUPIROCIN CA NASAL 2% 1GM TUBE NS SCH (15:00)
[2018-02-07 16:00] VITALS: BP 115/54
--- NOTE | 2018-02-07 16:05 | NUR ---
CALLED [facility] AND GAVE REPORT TO
--- NOTE | 2018-02-07 17:45 | NUR ---
DISCHARGE ORDER HAS BEEN IN PLACE. PATIENT TO GO TO [facility]. FAMILY IS AWARE. IV SITE LEFT INTACT. PATIENT HAS NO SIGNS AND SYMPTOMS OF ACUTE DISTRESS NOTED AT THIS TIME. GAVE PATIENT EDUCATION ON SIGNS AND SYMPTOMS TO REPORT TO THE NURSES AT THE FACILITY. PATIENT VERBALIZED UNDERSTANDING. DISCHARGE PACKET GIVEN TO [facility]. ALL BELONGINGS ARE WITH PATIENT. ID BANDS REMOVED. GOING BY WHEELCHAIR.
--- NOTE | 2018-02-07 17:49 | NUR ---
PHYSICAL THERAPY CO-SIGN The Physical Therapy Progress Notes documented by Plant Security Guard have been reviewed. Reviewed/Co-Signed by: Francisca Adorno PT Documentation Done by:EDGARD AGUAYO AMERICAN SIGN LANGUAGE TEACHER POC REVIEWED W/ AMERICAN SIGN LANGUAGE TEACHER; WILL BENEFIT W/ P.T. AFTER ACUTE STAY; PROGRESSING W/ FUNC MOB & GAIT ENDURANCE Addendum: 02/07/18 at 1749 by Francisca Adorno PT Amended: Links added.
== END 2018-02-07 17:45 | DRG 871 ==
LOC: MED 23:53 → MTU 02-04 03:20 → MIC 02-04 03:40 → MTU 02-04 09:12
PROVIDERS: ADMIT General Practice; ATTEND General Practice
DX: A41.9 Sepsis, unspecified organism (principal); E43 Unspecified severe protein-calorie malnutrition; I50.43 Acute on chronic combined systolic (congestive) and diastolic (congestive) heart failure; G93.41 Metabolic encephalopathy; I63.9 Cerebral infarction, unspecified; N39.0 Urinary tract infection, site not specified; M80.88XA Other osteoporosis with current pathological fracture, vertebra(e), initial encounter for fracture; C25.9 Malignant neoplasm of pancreas, unspecified; R65.20 Severe sepsis without septic shock; E87.6 Hypokalemia; J45.909 Unspecified asthma, uncomplicated; E11.9 Type 2 diabetes mellitus without complications; K74.60 Unspecified cirrhosis of liver; E83.42 Hypomagnesemia; K72.90 Hepatic failure, unspecified without coma; E78.2 Mixed hyperlipidemia; I11.0 Hypertensive heart disease with heart failure; F11.90 Opioid use, unspecified, uncomplicated; D69.6 Thrombocytopenia, unspecified; L30.4 Erythema intertrigo; B35.3 Tinea pedis; L85.3 Xerosis cutis; K42.9 Umbilical hernia without obstruction or gangrene; Z91.81 History of falling; Z79.899 Other long term (current) drug therapy; Z79.01 Long term (current) use of anticoagulants; Z83.3 Family history of diabetes mellitus; Z82.49 Family history of ischemic heart disease and other diseases of the circulatory system; Z82.5 Family history of asthma and other chronic lower respiratory diseases; Z68.37 Body mass index [BMI] 37.0-37.9, adult; K80.50 Calculus of bile duct without cholangitis or cholecystitis without obstruction
CPT/HCPCS: 36415; 70450; 71045; 80048; 80053; 80305; 81001; 82140; 82150; 82948; 83036; 83605; 83690; 83735; 83880; 84100; 84436; 84439; 84443; 84479; 84484; 85025; 85610; 85730; 87040; 87070; 87075; 87081; 87086; 87186; 87205; 93880; 96365; 96366; 96367; 97110; 97116; 97140; 97530; 99291; C1758; J1815; J2001; J2543; J3475; J3480; J7030; J7060; Q0092; Q9967

== ENCOUNTER 2019-01-28 18:56 | Inpatient (IN) | payer BC, MEDICAID ==
[~2019-01-28] VITALS: Ht 154.9 cm; Wt 95.3 kg
[~2019-01-28 18:56] MED LIST changes: +BACTNA NS; -CALCIUM PO; +CHLO118S2 TP; +DOCU-299 PO; +DOL10 PO; -FURO20TA8 PO; -Gabapentin PO; +Hydraguard TP; +LACT10SO11 PO; -LISI10TA11 PO; -METF500T4 PO; -METH10TA1 PO; +MYCC TP; -NAPR500E1 PO; -SPIR50TA2 PO; +VITC500 PO; +ZOS3.375PM IV; +[UNRECOGNIZED DRUG - OTHER] TP
[2019-01-28 19:07] VITALS: BP 86/31
--- NOTE | 2019-01-28 19:28 | NUR ---
PT BIB FAMILY VIA W/C C/O GENERALIZED WEAKNESS AND LOW BP. PT A&OX4, C/O WEAKNESS, FATIGUE AND GENERAL MALAISE. SPO2 91% ON RA. PLACED ON 2L O2 VIA NC, SPO2 NOW 96%. BREATHING EVEN AND UNLABORED
--- NOTE | 2019-01-28 19:28 | NUR ---
REPORT TO SURAJ WELLS
--- NOTE | 2019-01-28 19:28 | NUR ---
ASSUMED CARE OF PT
--- NOTE | 2019-01-28 19:33 | NUR ---
Dr. Severino examining patient.
[2019-01-28] MEDS ORDERED: NACL 0.9% 1,000 ML IV ONE ×2 (19:35→20:15)
[2019-01-28] MEDS ORDERED: ALBUTEROL SULFATE/IPRATROPIU 3 ML SOL IH ONE (19:35)
[2019-01-28] MEDS ORDERED: methylPREDNISolone SS 125 MG/2 ML VIAL IVP ONE (19:35)
[2019-01-28 20:08] LABS: BASOPHILS % (AUTO) 0.5 % (0.0-2.0); EOSINOPHILS # (AUTO) 0.1 K/uL (0-0.4); EOSINOPHILS % (AUTO) 0.9 % (0.0-4.0); HEMATOCRIT 45.1 % (36-48); HEMOGLOBIN 14.7 g/dL (12.0-16.0); LYMPHOCYTES # (AUTO) 1.6 K/uL (2.5-16.5); LYMPHOCYTES % (AUTO) 23.1 % (20.5-51.1); MEAN CORPUSCULAR HEMOGLOBIN 32 pg (27-31); MEAN CORPUSCULAR HGB CONC 33 g/dL (33-37); MEAN CORPUSCULAR VOLUME 97.8 fL (80-94); MONOCYTES # (AUTO) 0.9 K/uL (0.8-1.0); MONOCYTES % (AUTO) 12.8 % (1.7-9.3); NEUTROPHILS # (AUTO) 4.3 K/uL (1.8-7.7); NEUTROPHILS % (AUTO) 62.7 % (42.2-75.2); PLATELET COUNT (AUTO) 72 K/uL (140-450); RED BLOOD CELL COUNT(AUTO) 4.61 MIL/uL (4.20-5.40); RED CELL DISTRIBUTION WIDTH 14.5 % (11.6-13.7); WHITE BLOOD COUNT (AUTO) 6.9 K/uL (4.8-10.8)
--- NOTE | 2019-01-28 20:12 | NUR ---
# 14 FR Urinary catheter inserted utilizing sterile technique. Immediate return of 200 ml YELLOW/CLEAR urine noted. Urine sample collected and sent to lab. Pt tolerated procedure WELL. CATH REMOVED. PROCEDURE CHAPERONED BY SURAJ JACKSON.
[2019-01-28 20:19] LABS: APPEARANCE,URINE SL CLOUDY (CLEAR); BILIRUBIN,URINE 1+ (NEGATIVE); BLOOD, URINE NEGATIVE (NEGATIVE); COLOR,URINE YELLOW (YELLOW); LEUKOCYTE ESTERASE ,URINE TRACE (NEGATIVE); NITRITE, URINE NEGATIVE (NEGATIVE); UGLUCOSE NEGATIVE (NEGATIVE)
[2019-01-28 20:20] LABS: ANION GAP 15.7 (8-16); CREATININE 3.6 mg/dL (0.6-1.3); POTASSIUM 4.7 mmol/L (3.5-5.1)
[2019-01-28 20:22] LABS: RBC,URINE 0-5 /HPF (0-5); WBC,URINE 16-25 (MOD) /HPF (0-5)
[2019-01-28 20:26] LABS: TOTAL BILIRUBIN 1.7 mg/dL (0.0-1.0)
--- NOTE | 2019-01-28 20:41 | NUR ---
Ultrasound at bedside.
[2019-01-28] MEDS ORDERED: cefTRIAXone 1,000 MG VIAL ONE (20:56)
[2019-01-28] MEDS ORDERED: METF500T PO (21:06)
[2019-01-28] MEDS ORDERED: DOL10 PO (21:06)
--- NOTE | 2019-01-28 22:27 | NUR ---
CURRENT BP: 100/34 POST FLUID ADMINISTRATION.
[2019-01-28] MEDS ORDERED: INSULIN REGULAR, HUMAN 100 UNIT/ML VIAL SUBQ ONE (22:55)
[2019-01-28] MEDS ORDERED: DOCUSATE SODIUM 100 MG GELCAP PO PRN (23:10)
[2019-01-28] MEDS ORDERED: ZOLPIDEM 5 MG TAB PO PRN (23:10)
[2019-01-28] MEDS ORDERED: MORPHINE SULFATE 2 MG/ML SYR IVP PRN (23:10)
[2019-01-28] MEDS ORDERED: HYDROcodone/APAP 5/325 MG 1 TAB TAB PO PRN (23:10)
[2019-01-28] MEDS ORDERED: ONDANSETRON 4 MG/2 ML VIAL IM/IVP PRN (23:10)
[2019-01-28] MEDS ORDERED: ACETAMINOPHEN 325 MG TAB PO PRN (23:10)
[2019-01-28 23:35] VITALS: BP 90/44
--- NOTE | 2019-01-28 23:35 | NUR ---
Admitted from ER TO TELEMETRY UNIT, with chief complaint of SHAKING, UNABLE TO WALK, CANNOT EAT, GEN WEAKNESS, FOR TWO DAYS NOW. 68 y/o ,Female, Cooperative, AWAKE, A/OX4, ADMITTING DATA OBTAINED WITH BIOSOLIDS MANAGEMENT TECHNICIAN [employer] #[id number]. RESPIRATION EVEN AND UNLABORED. IV SALINE LOCK AT THE RIGHT HAND G22, PATENT AND INTACT. APPEARS WEAK AND SEEMS TO BE DROWSY. HEAD TO TOE ASSESSMENT DONE WITH ANNE/SURAJ ROWLAND. NOTED DISCOLORATION ON BILATERAL LOWER EXTREMETIES. SKIN INTACT. DENIES PAIN 0/10. PLAN OF CARE DISCUSSED WITH HELP OF CHASER APPRENTICE. PATIENT VERBALIZED UNDERSTANDING..oriented to call light, bed, phone,television, bathroom, smoking policy, visiting hours, procedures, ID bracelet on. Belongings list checked. DAUGHTER AT THE BEDSIDE.
--- NOTE | 2019-01-28 23:40 | NUR ---
Patient will be admitted to care of DR LECHUGA. Admited to TELE. Will go to room 116. Belongings list completed. Report to DENIS CHAMBERS.
[2019-01-28 23:43] LABS: BARBITURATE, URINE NEG. ng/ml (NEG <=200); BENZODIAZEPINE, URINE NEG. ng/mL (NEG <=200); CANNABINOID, URINE NEG. ng/mL (NEG <=50); COCAINE, URINE NEG. ng/mL (NEG <=300); OPIATE, URINE NEG. ng/mL (NEG <=2000); PHENCYCLIDINE SCREEN,URINE NEG. ng/mL (NEG <=25)
[2019-01-29] MEDS ORDERED: NACL 0.9% 500 ML IV ONE (00:05)
[2019-01-29] MEDS ORDERED: ALBUTEROL SULFATE/IPRATROPIU 3 ML SOL IH PRN (00:10)
[2019-01-29] MEDS ORDERED: LISI30TA6 PO (00:14)
[2019-01-29] MEDS ORDERED: FERR325E14 PO (00:15)
[2019-01-29] MEDS ORDERED: LACT10SO1 PO (00:15)
[2019-01-29] MEDS ORDERED: FURO-572 PO (00:15)
[2019-01-29] MEDS ORDERED: SPIR50TA PO (00:15)
--- NOTE | 2019-01-29 00:30 | NUR ---
Patient's Plan of Care was discussed and reviewed with OUTSIDE SALES ASSOCIATE: TRISH WILDE
--- NOTE | 2019-01-29 00:51 | NUR ---
BP - 90/44, STARTED BOLUS OF NS AT 500 ML/HR.
[2019-01-29 00:55] LABS: FREE T4 (FREE THYROXINE) 1.38 ng/dL (0.76-1.46); MAGNESIUM 2.6 mg/dL (1.8-2.4); THYROID STIMULATING HORMONE 1.87 uIU/mL (0.34-3.74)
--- NOTE | 2019-01-29 01:30 | NUR ---
AMBULATED TO BR WITH ASSISTANCE, BACK TO BED AFTER VOIDING, SAFETY MAINTAINED.
[2019-01-29] MEDS ORDERED: CALCIUM ACETATE 667 MG TAB PO SCH (01:45)
[2019-01-29] MEDS: NACL 0.9% 1,000 ML IV SCH ×3 (02:00→21:19)
--- NOTE | 2019-01-29 02:00 | NUR ---
BOLUS FINISHED, BP - 98/51, HR - 85.
[2019-01-29 03:47] LABS: CARBON DIOXIDE 22.8 mmol/L (21-32); CREATININE 1.9 mg/dL (0.6-1.3); POTASSIUM 3.8 mmol/L (3.5-5.1); PROTHROMBIN TIME 11.2 secs (10.8-13.4)
[2019-01-29 03:52] LABS: CHOL/HDL RATIO 4.7 (1-4.5)
[2019-01-29 04:00] VITALS: BP 93/52
[2019-01-29 04:21] LABS: MAGNESIUM 2.1 mg/dL (1.8-2.4); PHOSPHORUS 4.1 mg/dL (2.5-4.9)
[2019-01-29] MEDS ORDERED: INSULIN REGULAR, HUMAN 100 UNIT/ML VIAL SUBQ SCH (04:30)
--- NOTE | 2019-01-29 04:51 | NUR ---
CAROLYN CHECKED -162. WILL MEDICATE WITH INSULIN ORDERED BY DR. SMITH. Addendum: 01/29/19 at 0631 by Jenny Herrera LVN CORRECTION: BS - NOT 162 BUT 362.
[2019-01-29] MEDS: methylPREDNISolone SS 125 MG/2 ML VIAL IVP SCH ×2 (05:19→13:43)
--- NOTE | 2019-01-29 06:00 | NUR ---
BP CHECKED - 89/51, HR, 65. INFORMED DR. MIRNADA.
--- NOTE | 2019-01-29 06:10 | NUR ---
ORDERED GIVE BOLUS OF NS 500 ML.
--- NOTE | 2019-01-29 06:20 | NUR ---
BOLUS OF NS STARTED.
--- NOTE | 2019-01-29 06:33 | NUR ---
BP CHECKED - 94/56. HR - 72.
--- NOTE | 2019-01-29 06:35 | NUR ---
BS CHECKED - 428, NO COVERAGE PER DR. MIRANDA. PT ASYMPTOMATIC.
--- NOTE | 2019-01-29 06:43 | NUR ---
AMBULATED TO BR TO VOID BY FENCE POST CUTTER AND SON. REMINDED TO VOID IN THE HAT FOR UA TEST.
[2019-01-29] MEDS ORDERED: INSULIN NPH HUM/REG INSULIN HM 100 UNIT/ML 10 ML VIAL SUBQ SCH (07:00)
--- NOTE | 2019-01-29 07:01 | NUR ---
US SPECIMEN FOR URINALYSIS OBTAINED, WILL SEND TO LAB. CONDITION REMAIN STABLE. WILL ENDORSE TO AM NURSE FOR MONITORING OF BP AND BLOOD SUGAR. SON AT THE BEDSIDE.
[2019-01-29] MEDS ORDERED: NACL 0.9% 500 ML IV SCH (07:20)
--- NOTE | 2019-01-29 07:20 | NUR ---
ENDORSED TO AM SHIFT NURSE FOR CONTINUITY OF CARE.
--- NOTE | 2019-01-29 07:21 | NUR ---
RECEIVED REPORT FROM REGISTERED NURSE SURGICAL SERVICES RN TRISH AT BEDSIDE. PT IS AAOX4, SLEEPY DUE TO RESTLESS NIGHT. PT BP AT 94/53 AT THIS TIME. NO SIGNS OF PAIN OR DISTRESS NOTED. PT IV TO THE RIGHT HAND 22G RUNNING NS @ 100ML/HR. NO SOB REPORTED. ORIENTED PT TO ENVIRONMENT AND DISCUSSED POC WITH PT. PT SLEEPY BUT VERBALIZED UNDERSTANDING. BED IN LOW POSITION, CALL LIGHT WITHIN REACH. FALL PRECAUTIONS IN PLACE, SIGNS POSTED, WRIST BANDS APPLIED. FALL GOWN AND SOCKS ON PT. WILL ROUND FREQUENTLY.
[2019-01-29] MEDS ORDERED: BLOOD GLUCOSE MONITORING 1 DEV DEV FS SCH (07:30)
[2019-01-29 08:00] VITALS: BP 93/50
--- NOTE | 2019-01-29 08:46 | NUR ---
PATIENT HAS BEEN SCREENED AND CATEGORIZED HIGH NUTRITION RISK. PATIENT WILL BE SEEN WITHIN 1-2 DAYS OF ADMISSION. 01/29/19-01/30/[address]
[2019-01-29] MEDS ORDERED: LACTULOSE 20 GM/30 ML UDC PO SCH ×2 (09:00)
[2019-01-29] MEDS ORDERED: metFORMIN 500 MG TAB PO SCH ×3 (09:00→17:45)
[2019-01-29] MEDS ORDERED: RIFAXIMIN 550 MG TAB PO SCH (09:00)
[2019-01-29] MEDS: LACTOBACILLUS RHAMNOSUS GG 1 EACH CAP PO SCH (09:05)
[2019-01-29] MEDS: Z-GUARD PASTE TP SCH (09:05)
[2019-01-29] MEDS: RIFAXIMIN 550 MG TAB PO SCH ×2 (09:05→21:26)
[2019-01-29] MEDS: NYSTATIN CRE 100 MU/GM 15 GM TUBE TP SCH ×2 (09:05→21:27)
[2019-01-29] MEDS: INSULIN LISPRO SLIDING SCALE 100 UNITS/ML VIAL SUBQ PRN ×2 (09:13→13:45)
--- NOTE | 2019-01-29 09:23 | NUR ---
ADMINISTERED MORNING SCHEDULED MEDS TO PT. PT TOLERATED THEM WELL. PT STATED THAT SON WILL VISIT TO GIVE INFORMATION ON CLINIC WHERE PT GETS HER METHADONE DISPENSED. PT IS STABLE CONDITION AT THIS TIME. WILL CONTINUE TO ROUND FREQUENTLY. BED IN LOW POSITION, CALL LIGHT WITHIN REACH.
--- NOTE | 2019-01-29 11:23 | NUR ---
PT SLEEPING IN BED. NO SIGNS OF PAIN OR DISTRESS NOTED. WILL CONTINUE TO ROUND FREQUENTLY ON PT.
--- NOTE | 2019-01-29 11:37 | NUR ---
SPOKE WITH PT SON TERESA. ASKED HIM FOR INFORMATION TO PT'S METHADONE CLINIC. PER TERESA, HE WILL GET ME THE INFORMATION AND WILL CALL ME BACK.
[2019-01-29 12:00] VITALS: BP 96/50
--- NOTE | 2019-01-29 12:04 | NUR ---
PT GLUCOSE POC IS 484. NOTIFIED DR. MIRANDA. AWAITING ORDERS FOR INSULIN.
--- NOTE | 2019-01-29 12:32 | NUR ---
PER , PT TO RECEIVE 15 UNITS OF LANTUS INSULIN AND 10 UNITS OF HUMALOG INSULIN. WILL RECHECK BS.
--- NOTE | 2019-01-29 12:37 | NUR ---
SPOKE WITH PHARMACY ABOUT PT METHADONE. ORDER IS VERIFIED BY
[2019-01-29] MEDS: BLOOD GLUCOSE MONITORING 1 DEV DEV FS SCH ×3 (12:44→20:55)
[2019-01-29 13:08] LABS: HEMATOCRIT 44.1 % (36-48); HEMOGLOBIN 14.6 g/dL (12.0-16.0); MEAN CORPUSCULAR HEMOGLOBIN 33 pg (27-31); MEAN CORPUSCULAR HGB CONC 33 g/dL (33-37); MEAN CORPUSCULAR VOLUME 98.3 fL (80-94); PLATELET COUNT (AUTO) 76 K/uL (140-450); RED BLOOD CELL COUNT(AUTO) 4.48 MIL/uL (4.20-5.40); RED CELL DISTRIBUTION WIDTH 14.4 % (11.6-13.7)
[2019-01-29 13:22] LABS: CARBON DIOXIDE 22.4 mmol/L (21-32); CREATININE 1.5 mg/dL (0.6-1.3); POTASSIUM 3.4 mmol/L (3.5-5.1)
[2019-01-29] MEDS ORDERED: INSULIN LANTUS 100 UNITS/ML 10 ML VIAL SUBQ SCH ×2 (14:00→21:00)
--- NOTE | 2019-01-29 14:28 | NUR ---
RECHECKED PT GLUCOSE. GLUCOSE IS 540. NOTIFIED DR. MIRANDA. WILL REASSESS PT.
[2019-01-29 14:31] LABS: LYMPHOCYTES % (MANUAL) 1 % (20-46)
[2019-01-29 16:00] VITALS: BP 95/53
--- NOTE | 2019-01-29 16:04 | NUR ---
01/29/19 RD INITIAL ASSESSMENT COMPLETED PLEASE REFER TO NUTRITION ASSESSMENT UNDER CARE ACTIVITY FOR ESTIMATED NUTRITIONAL NEEDS. 1. CONTINUE RENAL AND CCHO 45 GM DIET TOLERATED 2. RD PROVIDED DIABETES NUTRITION EDUCATION IN [place] 3. RD TO FOLLOW-UP 3-5 DAYS, MODERATE RISK [address]
--- NOTE | 2019-01-29 16:15 | NUR ---
PT GLUCOSE POC IS 478. AWARE. AWAITING NEW ORDERS.
[2019-01-29] MEDS ORDERED: NACL 0.9% 1,000 ML IV ONE (16:35)
[2019-01-29] MEDS ORDERED: POTASSIUM CHLORIDE 10 MEQ TABER PO SCH (17:20)
--- NOTE | 2019-01-29 17:37 | NUR ---
TOLERATED INCENTIVE SPIROMETRY THERAPY WELL WITHOUT INCIDENT ENCOURAGED PATIENT TO USE INCENTIVE SPIROMETRY EVERY 1-2 HOURS WHILE AWAKE
--- NOTE | 2019-01-29 18:05 | NUR ---
PT IN BED WATCHING TV. NO SIGNS OF DISTRESS NOTED. WILL CONTINUE TO ROUND FREQUENTLY ON PT.
--- NOTE | 2019-01-29 18:08 | NUR ---
PER 'S ORDERS, NO INSULIN COVERAGE TO BE GIVEN AT THIS TIME. GIVING METFORMIN. REASSESSMENT OF BS DUE FOR 1999. PT IN STABLE CONDITION, NO SIGNS OF DIAPHORESIS, RAPID BREATHING, DIZZINESS, HEADACHE. WILL CONTINUE TO MONITOR PT CLOSELY.
--- NOTE | 2019-01-29 19:33 | NUR ---
ENDORSED PT TO RAMP FLIGHT ATTENDANT FOR CONTINUITY OF CARE. PT IN STABLE CONDITION AT THIS TIME.
[2019-01-29 20:00] VITALS: BP 103/62
[2019-01-29] MEDS ORDERED: INSULIN NPH HUM/REG INSULIN HM 100 UNIT/ML 10 ML VIAL SUBQ ONE (20:35)
--- NOTE | 2019-01-29 20:55 | NUR ---
BS HIGH AT 525. DR. LUKE INFORMED WILL ORDER. AWAITING FOR ORDERS
[2019-01-29] MEDS ORDERED: METHADONE 10 MG TAB PO SCH (21:00)
--- NOTE | 2019-01-29 21:00 | NUR ---
INFORMED DR. BHATIA THAT PT HAD 9X DIARRHEA. WILL ORDER D/C THE COLACE. NON ADMINISTERED COLACE FOR 2099. AWARE DUE TO DIARRHEA Addendum: 01/30/19 at 0610 by Antonella Billingsley RN PT SAID THAT SHE HAD DIARRHEA 9X SINCE THIS MORNING
[2019-01-29] MEDS: glipiZIDE ER 5 MG TABER PO SCH (21:25)
--- NOTE | 2019-01-29 21:26 | NUR ---
GIVEN METHADONE 20 MG TOTAL ORDERED.
--- NOTE | 2019-01-29 21:30 | NUR ---
PT'S RIGHT HAND IV SITE PAINFUL PER PAT. CHECKED SITE, PT IV CANNULA DISLODGED; INSERTED A NEW IV SITE G 22 AT LEFT FOREARM, PATENT AND INTACT
[2019-01-29] MEDS: INSULIN LANTUS 100 UNITS/ML 10 ML VIAL SUBQ SCH (21:32)
--- NOTE | 2019-01-29 23:30 | NUR ---
DR. CARCAMO SAID TO GIVE THE METFORMIN DOSE, WE VERIFIED W/ PAHARMACY AND PHARMACY LEO THAT IT WAS GIVEN EARLIER AT 1745-FOR NIGHT TIME DOSE. DR. BHATIA INFORMED
--- NOTE | 2019-01-29 23:30 | NUR ---
RETOOK THE BS LEVEL [address] BANDA INFORMED.
[2019-01-30] VITALS: BP 108/68
[2019-01-30] MEDS: BLOOD GLUCOSE MONITORING 1 DEV DEV FS SCH ×6 (00:07→20:25)
--- NOTE | 2019-01-30 02:34 | NUR ---
W/ ORDERS TO TAKE BS AGAIN BY DR. LUKE, BS 424MG/DL. DR. GALLO
[2019-01-30 04:00] VITALS: BP 98/54
[2019-01-30] MEDS: NACL 0.9% 1,000 ML IV SCH ×3 (04:25→20:25)
--- NOTE | 2019-01-30 06:10 | NUR ---
PTOTAL OF 6X BM, DR. LUKE AWARE. NO NEW ORDERS. ALREADY D/C THE COLACE
[2019-01-30 06:28] LABS: HEPATITIS B SURFACE ANTIBODY Non Reactive (.); HEPATITIS B SURFACE ANTIGEN Negative (Negative)
[2019-01-30] MEDS: INSULIN LISPRO SLIDING SCALE 100 UNITS/ML VIAL SUBQ PRN ×3 (06:46→17:37)
--- NOTE | 2019-01-30 06:47 | NUR ---
W/ BS OF 314MG/DL. DR BHATIA INFORMED AND SAID TO GIVE HUMALOG PER SLIDING SCALE
[2019-01-30 07:15] LABS: ANION GAP 12.6 (8-16); BASOPHILS % (AUTO) 0.1 % (0.0-2.0); CARBON DIOXIDE 21.7 mmol/L (21-32); CREATININE 1.1 mg/dL (0.6-1.3); HEMATOCRIT 40.5 % (36-48); HEMOGLOBIN 13.5 g/dL (12.0-16.0); LYMPHOCYTES # (AUTO) 0.4 K/uL (2.5-16.5); LYMPHOCYTES % (AUTO) 4.1 % (20.5-51.1); MEAN CORPUSCULAR HEMOGLOBIN 33 pg (27-31); MEAN CORPUSCULAR HGB CONC 33 g/dL (33-37); MEAN CORPUSCULAR VOLUME 97.9 fL (80-94); MONOCYTES # (AUTO) 0.6 K/uL (0.8-1.0); MONOCYTES % (AUTO) 5.5 % (1.7-9.3); NEUTROPHILS # (AUTO) 9.3 K/uL (1.8-7.7); NEUTROPHILS % (AUTO) 90.3 % (42.2-75.2); PLATELET COUNT (AUTO) 78 K/uL (140-450); POTASSIUM 4.3 mmol/L (3.5-5.1); RED BLOOD CELL COUNT(AUTO) 4.14 MIL/uL (4.20-5.40); RED CELL DISTRIBUTION WIDTH 14.5 % (11.6-13.7); WHITE BLOOD COUNT (AUTO) 10.3 K/uL (4.8-10.8)
--- NOTE | 2019-01-30 07:25 | NUR ---
ENDORSED TO AM SHIFT NURSE. PT IN STABLE CONDITION AT THIS TIME
--- NOTE | 2019-01-30 07:26 | NUR ---
REPORT RECEIVED FROM TEXTILE MACHINE MAINTENANCE MECHANIC NURSE, PT AWAKE ALERT, RESP EVEN UNLABORED, SKIN WARM DRY COLOR WNL, PT DENIES ANY PAIN OR DISCOMFORT, POC REVIEWED, ALL SAFETY MEASURES IN PLACE, WILL CONTINUE TO MONITOR.
[2019-01-30 07:27] LABS: PHOSPHORUS 3.4 mg/dL (2.5-4.9)
[2019-01-30 08:00] VITALS: BP 98/48
--- NOTE | 2019-01-30 08:45 | NUR ---
FINGER STICK GLUCOSE 330, WILL MEDICATE PER ORDER.
[2019-01-30] MEDS: glipiZIDE ER 5 MG TABER PO SCH (08:51)
[2019-01-30] MEDS: metFORMIN 500 MG TAB PO SCH ×2 (08:51→17:47)
[2019-01-30] MEDS: LACTOBACILLUS RHAMNOSUS GG 1 EACH CAP PO SCH (08:52)
[2019-01-30] MEDS: NYSTATIN CRE 100 MU/GM 15 GM TUBE TP SCH ×2 (08:52→20:38)
[2019-01-30] MEDS: RIFAXIMIN 550 MG TAB PO SCH ×2 (08:52→20:38)
[2019-01-30] MEDS: Z-GUARD PASTE TP SCH (08:56)
--- NOTE | 2019-01-30 10:21 | NUR ---
PT UP AMBULATING WITH PHYSICAL THERAPY.
[2019-01-30] MEDS: INSULIN NPH HUM/REG INSULIN HM 100 UNIT/ML 10 ML VIAL SUBQ SCH ×2 (10:28→16:30)
[2019-01-30 12:00] VITALS: BP 98/60
[2019-01-30] MEDS ORDERED: METHADONE 10 MG TAB PO SCH (12:00)
--- NOTE | 2019-01-30 12:24 | NUR ---
10U INSULIN GIVEN PER SLIDING SCALE FOR 256, PT NOW SITTING UP EATING LUNCH.
--- NOTE | 2019-01-30 12:52 | NUR ---
PT REQUESTS TO INCREASE THE DOSE OF METHADONE TO 60MG, CURRENTLY ON 20MG. DR MIRANDA NOTIFIED.
--- NOTE | 2019-01-30 13:40 | NUR ---
[facility] CALLED AT [phone] TO FAX CURRENT DOSING, OFFICE CLOSED AT 1330, AFTER HOURS NUMBER [phone] CALLED AND LEFT MESSAGE WITH GALINDO TO CALL US WITH FAX NUMBER, SO REQUEST FOR INFORMATION CAN BE SENT. AWAITING CALL BACK.
--- NOTE | 2019-01-30 14:40 | NUR ---
PT UP TO BATHROOM WITH MINIMAL ASSIST.
[2019-01-30 16:00] VITALS: BP 101/68
--- NOTE | 2019-01-30 16:30 | NUR ---
BLOOD SUGAR 177, WILL MEDICATE PER SLIDING SCALE.
--- NOTE | 2019-01-30 18:00 | NUR ---
PT SITTING UP EATING DINNER, APPEARS IN NO ACUTE DISTRESS.
--- NOTE | 2019-01-30 19:20 | NUR ---
REPORT GIVEN TO BALLROOM DANCE INSTRUCTOR NURSE, PT IN STABLE CONDITION.
--- NOTE | 2019-01-30 19:21 | NUR ---
REPORT RECEIVED FROM AM SHIFT NURSE, PT AWAKE ALERT, SPANSIH SPEAKING BUT CAN UNDERSTAND LIBYAN. RESP EVEN UNLABORED, SKIN WARM DRY COLOR WNL, PT DENIES ANY PAIN OR DISCOMFORT, W/ IV IN THE LEFT FA G 22, INTACT.POC REVIEWED, ALL SAFETY MEASURES IN PLACE, WILL CONTINUE TO MONITOR.
[2019-01-30 20:00] VITALS: BP 120/50
[2019-01-30] MEDS: INSULIN LANTUS 100 UNITS/ML 10 ML VIAL SUBQ SCH (20:39)
--- NOTE | 2019-01-30 20:39 | NUR ---
LANTUS INSULIN NOT ADMINISTERED. DR. LUKE ORDERED TO HOLD IT
[2019-01-30] MEDS: DEXTROSE 50% 50 ML SYR IVP PRN ×5 (22:00→23:38)
--- NOTE | 2019-01-30 22:30 | NUR ---
PHARMACY :PLEASE CHANGE THE TIME ADMINISTERED FOR D50 IV TO 2330. I INADVERTENTLY PUT THE TIME AT 2200. CANCEL 0 AND CHANGED IT TO 2230. I TOOK THE D50 IV AT XIS 2220. Addendum: 01/31/19 at 0301 by Antonella Billingsley RN PHARMACY :PLEASE CHANGE THE TIME ADMINISTERED FOR D50 IV TO 2230. I INADVERTENTLY PUT THE TIME AT 2338. CANCEL 2338 AND CHANGED IT TO 2230. I TOOK THE D50 IV AT XIS 2220
--- NOTE | 2019-01-30 22:40 | NUR ---
IVF SITE ON LEFT FA G 22,INFILTRATED.D/C SITE AND NEW SITE STARTED ON RIGHT FOREARM G 20
--- NOTE | 2019-01-30 23:00 | NUR ---
RECHECKED BS RESULT NOW IS 136MG/DL. PT COMMFORTABLE, AROUSABLE, DRANK JUICE, TRYING TO GET SOME SLEEP.
[2019-01-31] VITALS: BP 121/50
--- NOTE | 2019-01-31 | NUR ---
BS STILL 136 MG/DL
[2019-01-31] MEDS: BLOOD GLUCOSE MONITORING 1 DEV DEV FS SCH ×4 (00:46→11:42)
[2019-01-31] MEDS: NACL 0.9% 1,000 ML IV SCH ×2 (00:48→12:24)
[2019-01-31 04:00] VITALS: BP 90/50
[2019-01-31 06:47] LABS: BASOPHILS % (AUTO) 0.1 % (0.0-2.0); EOSINOPHILS % (AUTO) 0.7 % (0.0-4.0); HEMATOCRIT 38.5 % (36-48); HEMOGLOBIN 12.7 g/dL (12.0-16.0); LYMPHOCYTES # (AUTO) 1.7 K/uL (2.5-16.5); LYMPHOCYTES % (AUTO) 23.7 % (20.5-51.1); MEAN CORPUSCULAR HEMOGLOBIN 33 pg (27-31); MEAN CORPUSCULAR HGB CONC 33 g/dL (33-37); MEAN CORPUSCULAR VOLUME 98.6 fL (80-94); MONOCYTES # (AUTO) 0.5 K/uL (0.8-1.0); MONOCYTES % (AUTO) 7.7 % (1.7-9.3); NEUTROPHILS # (AUTO) 4.7 K/uL (1.8-7.7); NEUTROPHILS % (AUTO) 67.8 % (42.2-75.2); PLATELET COUNT (AUTO) 72 K/uL (140-450); RED CELL DISTRIBUTION WIDTH 14.6 % (11.6-13.7)
--- NOTE | 2019-01-31 06:55 | NUR ---
PT ASLEEP AT THIS TIME, BUT CAN BE AROUSED EASILY. PT'S BS FOR MONITORING, ENDORSED TO NEXT SHIFT
[2019-01-31 07:03] LABS: ANION GAP 11.9 (8-16); CARBON DIOXIDE 21.2 mmol/L (21-32); CREATININE 0.9 mg/dL (0.6-1.3); POTASSIUM 4.1 mmol/L (3.5-5.1)
--- NOTE | 2019-01-31 07:20 | NUR ---
RECEIVED BEDSIDE REPORT FROM NIGHT NURSE. PT IS BREATHING UNLABORED AND SYMMETRICAL. ALL SAFETY MEASURES IN CHECK AND CALL LIGHT WITHIN REACH. PT IS AOX4 WITH A RIGHT WRIST IV THAT IS RUNNING NORMAL SALINE AT 125ML/HR PATENT AND ASYMPOMATIC. PT HAS DISCOLORING TO BLE.
[2019-01-31 08:00] VITALS: BP 106/62
[2019-01-31] MEDS: metFORMIN 500 MG TAB PO SCH (08:00)
[2019-01-31] MEDS ORDERED: glipiZIDE ER 5 MG TABER PO SCH (09:00)
[2019-01-31] MEDS: LACTOBACILLUS RHAMNOSUS GG 1 EACH CAP PO SCH (09:17)
[2019-01-31] MEDS: RIFAXIMIN 550 MG TAB PO SCH (09:18)
[2019-01-31] MEDS: Z-GUARD PASTE TP SCH (09:19)
--- NOTE | 2019-01-31 09:21 | NUR ---
PT BLOOD GLUCOSE 60 ON FIRST READING 92 ON RETEST AFTER PATIENT ATE SOME BREAKFAST. SPOKE WITH DR BABCOCK WHO STATED TO GIVE GLIPIZIDE HOLD METFORMIN.
[2019-01-31] MEDS: NYSTATIN CRE 100 MU/GM 15 GM TUBE TP SCH (09:39)
--- NOTE | 2019-01-31 10:05 | NUR ---
SPOKE WITH [facility] CLINIC AT [phone] AND ASKED THEM TO FAX [facility] THE DOSAGE FOR HER METHADONE. THEY STATED THEY WOULD.
--- NOTE | 2019-01-31 10:52 | NUR ---
PT SLEEPING IN BED BREATHING UNLABORED NO OBVIOUS SIGNS OF DISTRESS.
--- NOTE | 2019-01-31 11:33 | NUR ---
PT SLEEPING IN BED NO SIGNS OBVIOUS DISTRESS BREATHING UNLABORED.
[2019-01-31] MEDS ORDERED: INSU100S22 SUBQ (11:59)
[2019-01-31 12:00] VITALS: BP 107/63
[2019-01-31] MEDS ORDERED: METHADONE 10 MG TAB PO SCH (12:00)
[2019-01-31] MEDS ORDERED: METF1000 PO (12:02)
[2019-01-31] MEDS ORDERED: LISI10TA11 PO (12:03)
[2019-01-31] MEDS ORDERED: CIPR500T4 PO (12:32)
--- NOTE | 2019-01-31 13:45 | NUR ---
PT SLEEPING IN BED BREATHING UNLABORED.
--- NOTE | 2019-01-31 13:50 | NUR ---
NOTIFIED DR MIRANDA THAT FAX FOR METHADONE ORDER WAS SENT ALONGSIDE MEDICAL RECORD OF PT. HE DENIES WANTING THE PAPERWORK AT THIS TIME, INFORMED HIM I WILL PUT IT IN HER CHART.
[2019-01-31] MEDS ORDERED: HYDR-5123 PO (15:11)
[2019-01-31 15:16] LABS: ANION GAP 12.8 (8-16); CARBON DIOXIDE 21.1 mmol/L (21-32); CREATININE 0.9 mg/dL (0.6-1.3); POTASSIUM 3.9 mmol/L (3.5-5.1)
--- NOTE | 2019-01-31 15:40 | NUR ---
DISCHARGED PATIENT. PATIENT WITH [facility] WHO TRANSPORTED PT HOME. PT HAS ALL BELONGINGS WITH HER AND REVIEWED AND SIGNED ALL DISCHARGE PAPERWORK. PROVIDED PT WITH SUPPLIES FOR INSULIN ADMINISTRATION, PT REFUSES INSULIN INJECTION EDUCATION STATING SHE KNOWS WHAT TO DO. IV REMOVED WITH CATHETER INTACT AND ALL ID BANDS REMOVED AND DISPOSED OF. ADMINISTERED NORCO PAIN MEDICATION FOR BACK PAIN FOLLOWING DR MIRANDA RECOMMENDATION. INFORMED SIGN MAKER OF 1540 DISCHARGE DEPARTURE TIME.
== END 2019-01-31 15:40 | disposition home or self-care (01) | DRG 682 ==
LOC: MED 18:56 → MTU 23:10
PROVIDERS: ADMIT General Practice; ATTEND General Practice
DX: N17.0 Acute kidney failure with tubular necrosis (principal); R57.1 Hypovolemic shock; N39.0 Urinary tract infection, site not specified; E44.0 Moderate protein-calorie malnutrition; D68.59 Other primary thrombophilia; E87.1 Hypo-osmolality and hyponatremia; J44.1 Chronic obstructive pulmonary disease with (acute) exacerbation; I95.9 Hypotension, unspecified; E11.21 Type 2 diabetes mellitus with diabetic nephropathy; E11.65 Type 2 diabetes mellitus with hyperglycemia; J45.909 Unspecified asthma, uncomplicated; I11.0 Hypertensive heart disease with heart failure; I50.9 Heart failure, unspecified; K70.30 Alcoholic cirrhosis of liver without ascites; K80.20 Calculus of gallbladder without cholecystitis without obstruction; F11.10 Opioid abuse, uncomplicated; F17.210 Nicotine dependence, cigarettes, uncomplicated; K72.90 Hepatic failure, unspecified without coma; E80.6 Other disorders of bilirubin metabolism; G89.29 Other chronic pain; E87.8 Other disorders of electrolyte and fluid balance, not elsewhere classified; E83.39 Other disorders of phosphorus metabolism; E83.41 Hypermagnesemia; D69.6 Thrombocytopenia, unspecified; Z91.19 Patient's noncompliance with other medical treatment and regimen; Z86.718 Personal history of other venous thrombosis and embolism; Z82.5 Family history of asthma and other chronic lower respiratory diseases; Z83.3 Family history of diabetes mellitus; Z68.39 Body mass index [BMI] 39.0-39.9, adult; Z82.49 Family history of ischemic heart disease and other diseases of the circulatory system
CPT/HCPCS: 36415; 71045; 76700; 80048; 80053; 80305; 81001; 82140; 82150; 82948; 83036; 83605; 83690; 83735; 83880; 84100; 84134; 84439; 84443; 84484; 85025; 85610; 85730; 86706; 86803; 87040; 87081; 87086; 87340; 93005; 93925; 93970; 94640; 96361; 96365; 96372; 96375; 97110; 97112; 97116; 97530; 99285; J0696; J1815; J2930; J7030; J7060; J7620; Q0092

== ENCOUNTER 2019-05-28 19:35 | Inpatient (IN) | payer BC ==
[~2019-05-28] VITALS: Ht 144.8 cm; Wt 85.7 kg
[~2019-05-28 19:35] MED LIST changes: -BACTNA NS; -CHLO118S2 TP; +CIPR500T4 PO; -DOCU-299 PO; +HYDR-5123 PO; -Hydraguard TP; -IBUP-2218 PO; +INSU100S22 SUBQ; -LACT10SO11 PO; +LISI10TA11 PO; +METF1000 PO; -MIRT15TA4 PO; -MYCC TP; -OMEP20TC12 PO; -SACC250C1 PO; +SPIR50TA PO; -VITC500 PO; -WARF4TAB PO; -ZOS3.375PM IV; -[UNRECOGNIZED DRUG - OTHER] TP
[2019-05-28 20:25] VITALS: BP 89/41
[2019-05-28] MEDS ORDERED: NACL 0.9% 1,000 ML IV SCH (21:21)
[2019-05-28 22:24] LABS: BASOPHILS % (AUTO) 0.3 % (0.0-2.0); EOSINOPHILS # (AUTO) 0.1 K/uL (0-0.4); EOSINOPHILS % (AUTO) 1.6 % (0.0-4.0); HEMATOCRIT 38.8 % (36-48); LYMPHOCYTES # (AUTO) 1.5 K/uL (2.5-16.5); LYMPHOCYTES % (AUTO) 27.8 % (20.5-51.1); MEAN CORPUSCULAR HEMOGLOBIN 34 pg (27-31); MEAN CORPUSCULAR HGB CONC 33 g/dL (33-37); MEAN CORPUSCULAR VOLUME 102.6 fL (80-94); MONOCYTES # (AUTO) 0.6 K/uL (0.8-1.0); MONOCYTES % (AUTO) 10.1 % (1.7-9.3); NEUTROPHILS # (AUTO) 3.3 K/uL (1.8-7.7); NEUTROPHILS % (AUTO) 60.2 % (42.2-75.2); PLATELET COUNT (AUTO) 96 K/uL (140-450); RED BLOOD CELL COUNT(AUTO) 3.78 MIL/uL (4.20-5.40); RED CELL DISTRIBUTION WIDTH 13.5 % (11.6-13.7); WHITE BLOOD COUNT (AUTO) 5.5 K/uL (4.8-10.8)
[2019-05-28 22:42] LABS: PROTHROMBIN TIME 9.9 secs (10.8-13.4)
[2019-05-28 22:52] LABS: CARBON DIOXIDE 24.9 mmol/L (21-32); POTASSIUM 4.9 mmol/L (3.5-5.1)
[2019-05-28 22:53] LABS: CREATININE 2.8 mg/dL (0.6-1.3)
[2019-05-28 22:54] LABS: ALBUMIN 3.4 g/dL (3.4-5.0)
[2019-05-28] MEDS ORDERED: NACL 0.9% 1,000 ML IV ONE (23:25)
[2019-05-28 23:55] LABS: APPEARANCE,URINE CLEAR (CLEAR); BILIRUBIN,URINE NEGATIVE (NEGATIVE); BLOOD, URINE NEGATIVE (NEGATIVE); COLOR,URINE YELLOW (YELLOW); LEUKOCYTE ESTERASE ,URINE 1+ (NEGATIVE); NITRITE, URINE NEGATIVE (NEGATIVE); UGLUCOSE NEGATIVE (NEGATIVE)
[2019-05-29] MEDS ORDERED: DOCUSATE SODIUM 100 MG GELCAP PO PRN (00:25)
[2019-05-29] MEDS ORDERED: ONDANSETRON 4 MG/2 ML VIAL IM/IVP PRN (00:25)
[2019-05-29] MEDS ORDERED: ACETAMINOPHEN 325 MG TAB PO PRN (00:25)
[2019-05-29 00:31] LABS: RBC,URINE 0-5 /HPF (0-5)
[2019-05-29] MEDS ORDERED: LISI10TA11 PO (01:28)
[2019-05-29] MEDS ORDERED: GABA400C PO (01:28)
[2019-05-29] MEDS ORDERED: FURO-572 PO (01:28)
[2019-05-29 01:55] LABS: BARBITURATE, URINE NEGATIVE ng/ml (NEG <=200); BENZODIAZEPINE, URINE NEGATIVE ng/mL (NEG <=200); CANNABINOID, URINE NEGATIVE ng/mL (NEG <=50); COCAINE, URINE NEGATIVE ng/mL (NEG <=300); OPIATE, URINE NEGATIVE ng/mL (NEG <=2000); PHENCYCLIDINE SCREEN,URINE NEGATIVE ng/mL (NEG <=25)
[2019-05-29 02:15] VITALS: BP 108/52
[2019-05-29] MEDS ORDERED: POTA10TE30 PO (02:15)
[2019-05-29] MEDS ORDERED: METF500T2 PO (02:15)
[2019-05-29] MEDS: HYDROcodone/APAP 7.5/325 MG 1 TAB PO PRN ×2 (02:29→11:40)
[2019-05-29] MEDS: NACL 0.9% 1,000 ML IV SCH ×2 (02:48→07:31)
[2019-05-29] MEDS ORDERED: cefTRIAXone 1,000 MG VIAL ONE (03:06)
[2019-05-29 04:00] VITALS: BP 110/53
[2019-05-29 04:25] LABS: MAGNESIUM 3.8 mg/dL (1.8-2.4)
[2019-05-29 04:26] LABS: CHOL/HDL RATIO 6.7 (1-4.5); FREE T4 (FREE THYROXINE) 1.09 ng/dL (0.76-1.46); PHOSPHORUS 5.7 mg/dL (2.5-4.9); THYROID STIMULATING HORMONE 1.02 uIU/mL (0.34-3.74)
[2019-05-29] MEDS: BLOOD GLUCOSE MONITORING 1 DEV DEV FS SCH ×4 (05:35→21:19)
[2019-05-29] MEDS: INSULIN LISPRO SLIDING SCALE 100 UNITS/ML VIAL SUBQ PRN ×3 (05:37→21:21)
[2019-05-29 06:51] LABS: BASOPHILS % (AUTO) 0.5 % (0.0-2.0); EOSINOPHILS # (AUTO) 0.1 K/uL (0-0.4); EOSINOPHILS % (AUTO) 1.5 % (0.0-4.0); HEMATOCRIT 36.2 % (36-48); HEMOGLOBIN 11.9 g/dL (12.0-16.0); LYMPHOCYTES # (AUTO) 1.4 K/uL (2.5-16.5); LYMPHOCYTES % (AUTO) 27.4 % (20.5-51.1); MEAN CORPUSCULAR HEMOGLOBIN 34 pg (27-31); MEAN CORPUSCULAR HGB CONC 33 g/dL (33-37); MEAN CORPUSCULAR VOLUME 102.5 fL (80-94); MONOCYTES # (AUTO) 0.7 K/uL (0.8-1.0); MONOCYTES % (AUTO) 12.7 % (1.7-9.3); NEUTROPHILS # (AUTO) 3.1 K/uL (1.8-7.7); NEUTROPHILS % (AUTO) 57.9 % (42.2-75.2); PLATELET COUNT (AUTO) 89 K/uL (140-450); RED BLOOD CELL COUNT(AUTO) 3.53 MIL/uL (4.20-5.40); RED CELL DISTRIBUTION WIDTH 13.5 % (11.6-13.7); WHITE BLOOD COUNT (AUTO) 5.3 K/uL (4.8-10.8)
[2019-05-29 07:44] LABS: ANION GAP 17.3 (8-16); CARBON DIOXIDE 21.3 mmol/L (21-32); CREATININE 1.9 mg/dL (0.6-1.3); POTASSIUM 4.6 mmol/L (3.5-5.1)
[2019-05-29 08:00] VITALS: BP 111/63
[2019-05-29] MEDS: LACTOBACILLUS RHAMNOSUS GG 1 EACH CAP PO SCH (08:23)
[2019-05-29] MEDS: GABAPENTIN 100 MG CAP PO SCH (08:24)
[2019-05-29] MEDS: PANTOPRAZOLE 40 MG INJ VIAL IVP SCH (08:25)
[2019-05-29] MEDS ORDERED: RIFAXIMIN 550 MG TAB PO SCH ×2 (09:00→21:00)
[2019-05-29 12:00] VITALS: BP 88/40
[2019-05-29] MEDS: LACTULOSE 20 GM/30 ML UDC PO SCH ×3 (12:40→20:57)
[2019-05-29] MEDS: DEXT 5% / NACL 0.9% 1,000 ML IV SCH ×2 (12:40→20:56)
[2019-05-29] MEDS: METHADONE 10 MG TAB PO SCH (14:51)
[2019-05-29 16:00] VITALS: BP 87/41
[2019-05-29 20:00] VITALS: BP 92/49
[2019-05-29] MEDS: RIFAXIMIN 550 MG TAB PO SCH (20:57)
[2019-05-29] MEDS ORDERED: CEPHALEXIN 500 MG CAP PO SCH (23:55)
[2019-05-30] VITALS: BP 91/46
[2019-05-30] MEDS ORDERED: CEPHALEXIN 500 MG CAP PO ONE
[2019-05-30] MEDS ORDERED: CEPHALEXIN 500 MG CAP PO SCH
[2019-05-30] MEDS: DEXT 5% / NACL 0.9% 1,000 ML IV SCH ×3 (02:48→20:20)
[2019-05-30 04:00] VITALS: BP 94/47
[2019-05-30] MEDS: BLOOD GLUCOSE MONITORING 1 DEV DEV FS SCH ×4 (05:20→21:00)
[2019-05-30 06:07] LABS: T4 (THYROXINE) 8.2 ug/dL (4.5-12.0)
[2019-05-30 07:43] LABS: BASOPHILS % (AUTO) 0.6 % (0.0-2.0); EOSINOPHILS # (AUTO) 0.1 K/uL (0-0.4); EOSINOPHILS % (AUTO) 2.2 % (0.0-4.0); HEMATOCRIT 36.2 % (36-48); LYMPHOCYTES # (AUTO) 1.7 K/uL (2.5-16.5); MEAN CORPUSCULAR HEMOGLOBIN 34 pg (27-31); MEAN CORPUSCULAR HGB CONC 33 g/dL (33-37); MEAN CORPUSCULAR VOLUME 102.9 fL (80-94); MONOCYTES # (AUTO) 0.9 K/uL (0.8-1.0); MONOCYTES % (AUTO) 14.3 % (1.7-9.3); NEUTROPHILS # (AUTO) 3.8 K/uL (1.8-7.7); NEUTROPHILS % (AUTO) 56.9 % (42.2-75.2); PLATELET COUNT (AUTO) 93 K/uL (140-450); RED BLOOD CELL COUNT(AUTO) 3.52 MIL/uL (4.20-5.40); RED CELL DISTRIBUTION WIDTH 13.7 % (11.6-13.7); WHITE BLOOD COUNT (AUTO) 6.6 K/uL (4.8-10.8)
[2019-05-30 08:00] VITALS: BP 128/82
[2019-05-30 08:04] LABS: ANION GAP 14.2 (8-16); CREATININE 1.3 mg/dL (0.6-1.3); POTASSIUM 5.2 mmol/L (3.5-5.1)
[2019-05-30 08:05] LABS: MAGNESIUM 2.8 mg/dL (1.8-2.4)
[2019-05-30] MEDS: PANTOPRAZOLE 40 MG INJ VIAL IVP SCH (09:00)
[2019-05-30] MEDS: LACTOBACILLUS RHAMNOSUS GG 1 EACH CAP PO SCH (09:00)
[2019-05-30] MEDS ORDERED: SODIUM ZIRCONIUM CYCLOSILICATE 10 GM POWD.PACK PO SCH (09:30)
[2019-05-30] MEDS: LACTULOSE 20 GM/30 ML UDC PO SCH ×4 (09:34→23:00)
[2019-05-30] MEDS: GABAPENTIN 100 MG CAP PO SCH (09:34)
[2019-05-30] MEDS: RIFAXIMIN 550 MG TAB PO SCH ×2 (09:41→23:00)
[2019-05-30] MEDS ORDERED: diphenhydrAMINE 50 MG/ML VIAL IVP PRN (10:30)
[2019-05-30 12:00] VITALS: BP 102/65
[2019-05-30] MEDS: LEVOFLOXACIN 250 MG/D5 PREMIX 50 ML IV SCH (12:00)
[2019-05-30] MEDS: INSULIN LISPRO SLIDING SCALE 100 UNITS/ML VIAL SUBQ PRN ×2 (12:33→17:12)
[2019-05-30] MEDS: METHADONE 10 MG TAB PO SCH (14:18)
[2019-05-30 16:00] VITALS: BP 85/33
[2019-05-30] MEDS: HYDROcodone/APAP 7.5/325 MG 1 TAB PO PRN (17:22)
[2019-05-30 20:00] VITALS: BP 90/51
[2019-05-31] VITALS: BP 93/45
[2019-05-31 04:00] VITALS: BP 119/53
[2019-05-31] MEDS: DEXT 5% / NACL 0.9% 1,000 ML IV SCH ×3 (04:20→21:24)
[2019-05-31] MEDS: BLOOD GLUCOSE MONITORING 1 DEV DEV FS SCH ×4 (06:12→21:07)
[2019-05-31 08:00] VITALS: BP 104/53
[2019-05-31] MEDS: PANTOPRAZOLE 40 MG INJ VIAL IVP SCH (08:34)
[2019-05-31] MEDS: LACTOBACILLUS RHAMNOSUS GG 1 EACH CAP PO SCH (08:35)
[2019-05-31] MEDS: GABAPENTIN 100 MG CAP PO SCH (08:35)
[2019-05-31] MEDS: RIFAXIMIN 550 MG TAB PO SCH ×2 (08:35→21:08)
[2019-05-31] MEDS: LACTULOSE 20 GM/30 ML UDC PO SCH ×5 (08:35→21:08)
[2019-05-31 10:06] LABS: ANION GAP 11.4 (8-16); CARBON DIOXIDE 21.1 mmol/L (21-32); CREATININE 1.1 mg/dL (0.6-1.3); POTASSIUM 4.5 mmol/L (3.5-5.1)
[2019-05-31 10:14] LABS: MAGNESIUM 2.3 mg/dL (1.8-2.4); PHOSPHORUS 3.6 mg/dL (2.5-4.9)
[2019-05-31 10:57] LABS: HEMATOCRIT 34.6 % (36-48); HEMOGLOBIN 11.4 g/dL (12.0-16.0); MEAN CORPUSCULAR HEMOGLOBIN 34 pg (27-31); MEAN CORPUSCULAR HGB CONC 33 g/dL (33-37); MEAN CORPUSCULAR VOLUME 104.2 fL (80-94); PLATELET COUNT (AUTO) 86 K/uL (140-450); RED BLOOD CELL COUNT(AUTO) 3.32 MIL/uL (4.20-5.40); RED CELL DISTRIBUTION WIDTH 13.6 % (11.6-13.7); WHITE BLOOD COUNT (AUTO) 5.9 K/uL (4.8-10.8)
[2019-05-31 12:10] VITALS: BP 105/54
[2019-05-31] MEDS: INSULIN LISPRO SLIDING SCALE 100 UNITS/ML VIAL SUBQ PRN ×3 (12:30→21:16)
[2019-05-31] MEDS: LEVOFLOXACIN 250 MG/D5 PREMIX 50 ML IV SCH (12:32)
[2019-05-31 12:53] LABS: LYMPHOCYTES % (MANUAL) 30 % (20-46); MONOCYTES % (MANUAL) 8 % (5-12)
[2019-05-31] MEDS: METHADONE 10 MG TAB PO SCH (13:08)
[2019-05-31] MEDS ORDERED: DOL10 PO (13:17)
[2019-05-31] MEDS ORDERED: RIFA550T PO (13:17)
[2019-05-31] MEDS ORDERED: LACT10SO11 PO (13:17)
[2019-05-31] MEDS ORDERED: LACT1.4C PO (13:31)
[2019-05-31] MEDS ORDERED: LEVO500T2 PO (13:31)
[2019-05-31 16:00] VITALS: BP 98/48
[2019-05-31 20:00] VITALS: BP 95/62
[2019-06-01] VITALS: BP 104/53
[2019-06-01 04:00] VITALS: BP 104/50
[2019-06-01] MEDS: DEXT 5% / NACL 0.9% 1,000 ML IV SCH ×3 (05:52→21:11)
[2019-06-01] MEDS: HYDROcodone/APAP 7.5/325 MG 1 TAB PO PRN ×2 (05:53→21:11)
[2019-06-01] MEDS: INSULIN LISPRO SLIDING SCALE 100 UNITS/ML VIAL SUBQ PRN ×4 (06:03→21:21)
[2019-06-01] MEDS: BLOOD GLUCOSE MONITORING 1 DEV DEV FS SCH ×4 (06:06→21:23)
[2019-06-01 08:00] VITALS: BP 97/54
[2019-06-01] MEDS: RIFAXIMIN 550 MG TAB PO SCH ×2 (08:28→21:10)
[2019-06-01] MEDS: PANTOPRAZOLE 40 MG INJ VIAL IVP SCH (08:29)
[2019-06-01] MEDS: LACTULOSE 20 GM/30 ML UDC PO SCH ×4 (08:29→21:11)
[2019-06-01] MEDS: GABAPENTIN 100 MG CAP PO SCH (08:29)
[2019-06-01] MEDS: LACTOBACILLUS RHAMNOSUS GG 1 EACH CAP PO SCH (08:29)
[2019-06-01 11:03] LABS: HEMATOCRIT 30.3 % (36-48); MEAN CORPUSCULAR HEMOGLOBIN 34 pg (27-31); MEAN CORPUSCULAR HGB CONC 33 g/dL (33-37); PLATELET COUNT (AUTO) 75 K/uL (140-450); RED BLOOD CELL COUNT(AUTO) 2.91 MIL/uL (4.20-5.40); RED CELL DISTRIBUTION WIDTH 13.5 % (11.6-13.7); WHITE BLOOD COUNT (AUTO) 8.7 K/uL (4.8-10.8)
[2019-06-01 11:11] LABS: ANION GAP 10.8 (8-16); CARBON DIOXIDE 20.6 mmol/L (21-32); CREATININE 0.9 mg/dL (0.6-1.3); POTASSIUM 4.4 mmol/L (3.5-5.1)
[2019-06-01 11:17] LABS: MAGNESIUM 1.7 mg/dL (1.8-2.4); PHOSPHORUS 2.8 mg/dL (2.5-4.9)
[2019-06-01] MEDS ORDERED: MAGNESIUM OXIDE 400 MG TAB PO SCH (11:26)
[2019-06-01 11:31] LABS: BASOPHILS % (MANUAL) 0 % (0-2); EOSINOPHILS % (MANUAL) 1 % (0-4); LYMPHOCYTES % (MANUAL) 11 % (20-46); MONOCYTES % (MANUAL) 6 % (5-12)
[2019-06-01] MEDS: LEVOFLOXACIN 250 MG/D5 PREMIX 50 ML IV SCH (11:32)
[2019-06-01 12:00] VITALS: BP 98/54
[2019-06-01] MEDS: METHADONE 10 MG TAB PO SCH (13:52)
[2019-06-01 16:00] VITALS: BP 100/54
[2019-06-01 20:00] VITALS: BP 103/53
[2019-06-02] VITALS: BP 97/37
[2019-06-02 04:05] VITALS: BP 88/39
[2019-06-02] MEDS: DEXT 5% / NACL 0.9% 1,000 ML IV SCH ×2 (04:08→11:25)
[2019-06-02] MEDS: BLOOD GLUCOSE MONITORING 1 DEV DEV FS SCH ×2 (05:25→11:09)
[2019-06-02] MEDS: INSULIN LISPRO SLIDING SCALE 100 UNITS/ML VIAL SUBQ PRN (05:27)
[2019-06-02 06:38] LABS: MAGNESIUM 1.6 mg/dL (1.8-2.4); PHOSPHORUS 2.4 mg/dL (2.5-4.9)
[2019-06-02 06:40] LABS: ANION GAP 5.9 (8-16); CARBON DIOXIDE 25.2 mmol/L (21-32); CREATININE 0.9 mg/dL (0.6-1.3); POTASSIUM 4.1 mmol/L (3.5-5.1)
[2019-06-02 07:26] LABS: HEMATOCRIT 27.5 % (36-48); HEMOGLOBIN 9.2 g/dL (12.0-16.0); MEAN CORPUSCULAR HEMOGLOBIN 35 pg (27-31); MEAN CORPUSCULAR HGB CONC 33 g/dL (33-37); MEAN CORPUSCULAR VOLUME 103.9 fL (80-94); PLATELET COUNT (AUTO) 69 K/uL (140-450); RED BLOOD CELL COUNT(AUTO) 2.64 MIL/uL (4.20-5.40); RED CELL DISTRIBUTION WIDTH 13.6 % (11.6-13.7); WHITE BLOOD COUNT (AUTO) 6.2 K/uL (4.8-10.8)
[2019-06-02 08:00] VITALS: BP 95/56
[2019-06-02] MEDS: LACTULOSE 20 GM/30 ML UDC PO SCH ×2 (09:16→13:11)
[2019-06-02] MEDS: GABAPENTIN 100 MG CAP PO SCH (09:16)
[2019-06-02] MEDS: LACTOBACILLUS RHAMNOSUS GG 1 EACH CAP PO SCH (09:16)
[2019-06-02] MEDS: PANTOPRAZOLE 40 MG INJ VIAL IVP SCH (09:16)
[2019-06-02] MEDS: RIFAXIMIN 550 MG TAB PO SCH (09:16)
[2019-06-02 09:28] LABS: LYMPHOCYTES % (MANUAL) 20 % (20-46); MONOCYTES % (MANUAL) 13 % (5-12)
[2019-06-02 09:29] LABS: EOSINOPHILS % (MANUAL) 2 % (0-4)
[2019-06-02] MEDS ORDERED: INFLUENZA VACCINE QUAD 0.5 ML SYR IMVAC PRN (09:35)
[2019-06-02] MEDS: LEVOFLOXACIN 250 MG/D5 PREMIX 50 ML IV SCH (10:56)
[2019-06-02] MEDS ORDERED: MAG SULF 2000 MG/WATER PREMIX 50 ML IV SCH (11:00)
[2019-06-02] MEDS ORDERED: SODIUM PHOS / POTASSIUM PHOS 1 PKT PDR PO SCH (11:00)
[2019-06-02 12:00] VITALS: BP 96/48
[2019-06-02] MEDS: METHADONE 10 MG TAB PO SCH (13:11)
[2019-06-02 14:18] VITALS: BP 98/50
[2019-06-02 15:07] LABS: HEPATITIS A ANTIBODY IGM Negative (Negative); HEPATITIS B SURFACE ANTIBODY Non Reactive (.); HEPATITIS B SURFACE ANTIGEN Negative (Negative)
== END 2019-06-02 15:22 | disposition home health service (06) | DRG 441 ==
LOC: MED 19:35 → MTU 05-29 00:26
PROVIDERS: ADMIT General Practice; ATTEND General Practice
PROC: 02HV33Z Insertion of Infusion Device into Superior Vena Cava, Percutaneous Approach (ICD-10-PCS; 2019-05-30)
PROC: B548ZZA Ultrasonography of Superior Vena Cava, Guidance (ICD-10-PCS; 2019-05-30)
PROC: 3E02340 Introduction of Influenza Vaccine into Muscle, Percutaneous Approach (ICD-10-PCS; principal; 2019-06-02)
DX: K72.90 Hepatic failure, unspecified without coma (principal); N17.0 Acute kidney failure with tubular necrosis; R57.1 Hypovolemic shock; N39.0 Urinary tract infection, site not specified; E44.1 Mild protein-calorie malnutrition; Z68.41 Body mass index [BMI] 40.0-44.9, adult; E72.20 Disorder of urea cycle metabolism, unspecified; K76.6 Portal hypertension; F11.23 Opioid dependence with withdrawal; R65.10 Systemic inflammatory response syndrome (SIRS) of non-infectious origin without acute organ dysfunction; K74.60 Unspecified cirrhosis of liver; I10 Essential (primary) hypertension; J45.909 Unspecified asthma, uncomplicated; E11.40 Type 2 diabetes mellitus with diabetic neuropathy, unspecified; E11.65 Type 2 diabetes mellitus with hyperglycemia; E83.42 Hypomagnesemia; Z23 Encounter for immunization; Z88.1 Allergy status to other antibiotic agents; Z79.899 Other long term (current) drug therapy; Z86.718 Personal history of other venous thrombosis and embolism; Z91.14 Patient's other noncompliance with medication regimen
CPT/HCPCS: 36415; 70450; 71045; 80048; 80053; 80305; 81001; 82140; 82150; 82272; 82550; 82948; 83036; 83605; 83690; 83735; 83880; 84100; 84436; 84439; 84443; 84479; 84484; 85025; 85610; 85730; 86704; 86706; 86708; 86709; 86803; 87040; 87081; 87086; 87340; 93005; 93976; 97110; 97116; 97161-GP; 97530; 99285; C1751; C9113; J0696; J1200; J1956; J3475; J7030; J7042; J7060; Q0092

== ENCOUNTER 2019-09-06 19:08 | Emergency (ER) | payer BC ==
[~2019-09-06] VITALS: Ht 152.4 cm; Wt 104.3 kg
[~2019-09-06 19:08] MED LIST changes: -CIPR500T4 PO; +GABA400C PO; -HYDR-5123 PO; -INSU100S22 SUBQ; +LACT1.4C PO; -LACT10SO1 PO; +LACT10SO11 PO; +LEVO500T2 PO; -METF1000 PO; +METF500T2 PO; +RIFA550T PO; -SPIR50TA PO
--- NOTE | 2019-09-06 19:30 | NUR ---
69 Y/O FEMALE C/O FALL X 45MIN AGO. PT WAS WALKING OUTSIDE AND WAS FEELING WEAK AND TIRED AND ENDED UP FALLLING ON LEFT SIDE. LEFT SIDE SHOWS HEMATOMA, BURSING NEAR EYE SOCKET AND CHEEK. PT STATES SHE CANT MOVE HER LEFT ARM. RATES PAIN 10/10. VSS. A & O X4. WHEELCHAIR ASSISTANCE. NO OBVIOUS DEFORMITY NOTED ON EXTREM. 3MM PERRLA BIRSK. CMS INTACT. RADIAL PULSES PRESENT BILAT EXTREM. CAP REFILL < 3. NKA. PMH: DM, CIRRHOSIS.
[2019-09-06] MEDS ORDERED: KETOROLAC 30 MG/ML VIAL IVP ONE (21:25)
--- NOTE | 2019-09-06 23:16 | NUR ---
PT L ARM PLACED IN COAPTATION LONG SPLINT, INSTRUCTIONS FROM DR INDICATED LONG ARM SPLINT EXTENDED UP TO BASE OF HUMERUS. WRAPPED WITH CHARLES WRAP. +CSM
--- NOTE | 2019-09-06 23:18 | NUR ---
PT PLACED IN SLING SIZED MEDIUM, FITTED TO PT SIZE
[2019-09-06] MEDS ORDERED: MORPHINE SULFATE 4 MG/ML SYR IVP ONE (23:40)
--- NOTE | 2019-09-07 01:36 | NUR ---
Patient discharged with v/s stable. Written and verbal after care instructions given and explained. Patient alert, oriented and verbalized understanding of instructions. Wheel Chair Assisted with steady gait. All questions addressed prior to discharge. ID band removed. Patient advised to follow up with PMD. Rx of NAPROSYN given. Patient educated on indication of medication including possible reaction and side effects. Opportunity to ask questions provided and answered.
== END 2019-09-07 01:36 | disposition home or self-care (01) ==
LOC: MED 19:08
DX: S42.302A Unspecified fracture of shaft of humerus, left arm, initial encounter for closed fracture (principal); S00.83XA Contusion of other part of head, initial encounter; I11.9 Hypertensive heart disease without heart failure; E11.9 Type 2 diabetes mellitus without complications; J45.909 Unspecified asthma, uncomplicated; Z79.899 Other long term (current) drug therapy; Z88.1 Allergy status to other antibiotic agents; W18.30XA Fall on same level, unspecified, initial encounter; Y93.89 Activity, other specified; Y92.89 Other specified places as the place of occurrence of the external cause; Y99.8 Other external cause status
CPT/HCPCS: 29105; 70486; 73030; 96374; 96375; 99284; J1885; J2270; Q0092